=== PATIENT | female | born 1980 | race Caucasian/White ===

== ENCOUNTER 2020-04-11 19:27 | Emergency (ER) | payer MEDICAID, SELFPAY ==
[2020-04-11 19:30] VITALS: BP 136/90; PULSE 114; RESP 18; TEMP 36.3; O2SAT 97; BMI 34.9
--- NOTE | 2020-04-11 20:37 | ED.VIS.DENTA ---
History of Present Illness Chief Complaint: Dental Informant: Patient Onset: Days Context: Gradual Onset Narrative: Patient is a 39-year-old female with history of bipolar disorder presenting with dental pain. Patient states she is new to the area and [facility] She is for the past few days she is had worsening pain in her bilateral molars. She states in November she had an abscess on her left lower tooth that had to be lanced. At that time she was on antibiotics. She is supposed to follow-up with a dentist but everything got canceled secondary to COVID and now she is moved from [place] to [place]. She continues to smoke cigarettes. She is been taking Tylenol with no relief of her symptoms. She denies any difficulty swallowing or chewing. She denies any new injuries to her teeth. She is never like she has an abscess this time. No other complaints at this time. Past Medical History - Allergies and Home Meds Allergies/Adverse Reactions: Allergies risperidone Allergy (Verified 04/11/20 19:28) Anaphylaxis Primary Care Physician: Care Physician,No Primary [Primary Care Provider] - Past Medical History: - - Bipolar disorder [facility] Smoking Status: Current every day smoker Review of Systems General: Denies: Chills, Fever, Sweats Eyes: Denies: Visual changes - bilaterally, Diplopia ENT: Reports: - - Bilateral upper dental pain. Denies: Rhinorrhea, Sore throat Cardiovascular: Denies: Chest pain, Palpitations Respiratory: Denies: Dyspnea, Cough, Dyspnea on exertion Gastrointestinal: Denies: Abdominal pain, Nausea, Vomiting Musculoskeletal: Denies: Back pain, Extremity Pain Skin: Denies: Rash, Wounds Neurological: Denies: Headache, Weakness, Numbness Physical Exam Vital Signs/Narrative: Vital Signs Temp Pulse Resp BP Pulse Ox 04/11/20 19:30 97.3 F L 114 H 18 136/90 H 97 Inital Vital Signs reviewed: Yes General: Well nourished, Well developed Head: Normocephalic, Atraumatic ENT: Moist mucous membranes, No rhinorrhea, TM's clear Mouth/Throat: Normal inspection lips/gums, Normal oral mucosa, Widespread dental decay, - - Patient's back two of her molars are completely eroded down. She has been having pain at her second molar site the left. Broken tooth with obvious caries and pain to palpation of the right premolar. Sublingual mucosa is soft.. Negative for: Dental abscess, Trismus Neck: Supple, No lymphadenopathy, Nontender, No JVD Cardiovascular: Regular rate, Regular rhythm, No murmurs Respiratory: No distress, CTA bilaterally, Chest nontender Abdomen: Soft, Nontender, Nondistended, Normal bowel sounds Back: Nontender, Normal Inspection Extremities: Nontender, No edema Skin: Normal color, No rash Neurological: Alert, Oriented x3, Cranial nerves II-XII grossly intact, Normal Strength, Normal Sensation Psychological: Normal affect Diagnostic/Tx/Re-eval - Medical Decision Making Patient evaluated for dental pain. She does not have any obvious focal abscess. Not having trismus or airway compromise. Patient be started on penicillin and Motrin for pain control. She is agreeable with this plan. She is given a dental referral line as well as the on-call physician is not have a PCP in the area. She is counseled on return precautions. Patient is counseled on signs and symptoms requiring return to the emergency room. Patient verbalizes agreement and understand this plan. Patient discharged home in stable and improved condition. ED Disposition - Plan for ED Patient: Disposition: Home or Assisted Living Diagnosis: Dentalgia Instructions: ED Tooth Pain Prescriptions: Ibuprofen [Motrin] 800 mg PO TID PRN PRN #20 tab PRN Reason: Pain Score 1-10/10 Prescription Printed Penicillin V Potassium 500 mg PO 4X/DAY #40 tab Prescription Printed Referrals: Brian Esposito MD [NON-STAFF] -
[2020-04-11] MEDS: Penicillin Vk 250 MG Tablet 500 MG PO (20:43)
[2020-04-11] MEDS: Ibuprofen 600 MG Tablet PO (20:43)
[2020-04-11 20:47] VITALS: PULSE 90; RESP 16; O2SAT 99
--- NOTE | 2020-04-11 20:47 | ED.RN ---
REVIEWED D/C INSTRUCTIONS, FOLLOW UP CARE, PRESCRIPTIONS, AND S/S THAT WOULD WARRANT A RETURN TO THE ED WITH PT. PT VERBALIZED AN UNDERSTANDING AND DENIES FURTHER QUESTIONS FOR THIS RN. PT SKIN P/W/D, RESP EVEN AND UNLABORED, PT A&O X 3, NO DISTRESS NOTED. PT AMBULATED OUT OF ED, GAIT STEADY.
== END 2020-04-11 20:48 | disposition home or self-care (01) ==
PROVIDERS: Emergency Provider Emergency Medicine
DX: K08.89 Other specified disorders of teeth and supporting structures (principal); K02.9 Dental caries, unspecified; S02.5XXA Fracture of tooth (traumatic), initial encounter for closed fracture; X58.XXXA Exposure to other specified factors, initial encounter; Y93.9 Activity, unspecified; Y92.9 Unspecified place or not applicable; Y99.9 Unspecified external cause status; F31.9 Bipolar disorder, unspecified; F17.210 Nicotine dependence, cigarettes, uncomplicated; Z79.899 Other long term (current) drug therapy
CPT/HCPCS: 99283

== ENCOUNTER 2020-04-25 14:43 | Emergency (ER) | payer MEDICAID, SELFPAY ==
[2020-04-25 14:44] VITALS: BP 157/113; PULSE 100; RESP 17; TEMP 36.6; O2SAT 100; BMI 32.9
--- NOTE | 2020-04-25 15:14 | ED.DCSUM_ITS ---
- ER Visit Summary Date of Service: 04/25/20 Chief Complaint: Dental pain History of Present Illness: The patient is a 39 F with no primary care physician. She reports that she went to [facility] 6 days ago and was changed from penicillin to amoxicillin and told that she needed to have multiple teeth extracted. She states that they tried to extract them and were unable to. She reports that she now has an appointment with [facility] in [place] on May 07. However, she has had increased pain since they attempted to pull the teeth 6 days ago. Patient reports that she has pain in her right mandibular second molar that is 10 out of 10 at worst and she is pain-free currently. She describes the pain as sharp. Is worsened by eating, breathing, or smoking. Is relieved by ice. She reports that she did have jaw swelling, but this is improving with the amoxicillin. Physical Examination: Vitals: Stable. Afebrile. Mouth: Widespread dental decay. No trismus. No edema of the floor of the mouth. Pain with percussion of both mandibular second molars and both maxillary second molars. There are obvious cavities. The left mandibular second molars are eroded to the gumline. General: A&O x 3. NAD. Cardiovascular exam: Regular rate and rhythm, no murmur, rub or gallop. Respiratory exam: Clear to auscultation bilaterally. No wheezes or stridor. Abdominal exam: Soft, nontender, nondistended, normal bowel sounds. No peritoneal signs. Extremity: No clubbing, cyanosis, or edema. Emergency Department Course and Treatment: An [facility] report was obtained which shows she is had one prescription for opiates. She was given a dose of [place] p.o. Treatment Plan: Patient is given a list of local dentist. Instructed follow-up the dentist as soon as possible for further evaluation and treatment. She is instructed to continue her amoxicillin. Return to the emergency department for any worsening symptoms. Disposition: To home in improved and stable condition. Impression: 1. Dental pain. This note was generated with [employer] dictation software. It may contain incorrect words, spelling, and punctuation that were not noted in review of the chart prior to signing ED Disposition - Plan for ED Patient: Disposition: Home or Assisted Living Instructions: ED Tooth Pain Prescriptions: Hydrocodone Bitart/Apap 5-325 [[place] 5MG-325MG] 1 tab PO Q4H PRN PRN 2 Days #10 tab PRN Reason: Pain Prescription Printed Referrals: Dentist,Your [STAFF PHYSICIAN] - As soon as possible
[2020-04-25] MEDS: HYDROcodone Bitartrate/Apap 5/325 Tablet PO (15:34)
== END 2020-04-25 15:43 | disposition home or self-care (01) ==
LOC: ED 15:21
PROVIDERS: Emergency Provider Emergency Medicine
DX: K08.89 Other specified disorders of teeth and supporting structures (principal); K02.9 Dental caries, unspecified; R05 Cough; Z72.0 Tobacco use; Z79.899 Other long term (current) drug therapy
CPT/HCPCS: 99282

== ENCOUNTER 2021-04-19 14:46 | Emergency (ER) | payer MEDICAID, SELFPAY ==
[2021-04-19 14:46] VITALS: BP 151/113; PULSE 76; RESP 18; TEMP 36.3; O2SAT 98; BMI 35.3
--- NOTE | 2021-04-19 14:50 | RAD_ITS ---
STUDY: X-RAY CHEST REASON FOR EXAM: Female, 40 years old. Chest pain TECHNIQUE: Single AP portable view of the chest. COMPARISON: None. FINDINGS: The lungs are clear and expanded. There is no demonstrated pleural abnormality. Normal size heart. Normal mediastinum and benji. Normal visualized pulmonary arteries. Normal visualized aortic arch and descending thoracic aorta. Normal visualized thoracic spine. Normal visualized ribs, clavicles, and shoulders. There is no demonstrated abnormality of the visualized soft tissue structures of the upper abdomen. RAD/Chest 1 View (Portable) IMPRESSION: Normal x-ray examination of the chest. Electronically Signed: Jose Cormier MD at 15:47 EDT , Service support ,
--- NOTE | 2021-04-19 14:50 | EKG12_ITS ---
Test Reason : CP Blood Pressure : / mmHG Vent. Rate : 078 BPM Atrial Rate : 078 BPM P-R Int : 134 ms QRS Dur : 080 ms QT Int : 384 ms P-R-T Axes : 061 040 018 degrees QTc Int : 437 ms Normal sinus rhythm Normal ECG Confirmed by ROBERT KIRBY, JEOVANY ([id number]), society editor SUE REYES ([id number]) on 04/22/2021 10:01:56 AM Referred By: Confirmed By:JEOVANY JONES MD
[2021-04-19 15:18] LABS: Absolute Lymphocyte Count 3.07 X10^3/uL (0.83-4.51); Absolute Neutrophil Count 6.5 X10^3/uL (2.0-7.7); Basophil# 0.07 X10^3/uL; Basophil% 0.6 % (0-1); Eosinophils% 2.7 % (0-5); Hematocrit 41.3 % (37-47); Hemoglobin 13.3 g/dL (12.0-15.0); Lymphocyte # 3.07 X10^3/ul (0.83-4.51); Mean Corp Hgb Conc 32.2 g/dL (32-36); Mean Corpuscular Hgb 28.2 pg (27.0-32.0); Mean Corpuscular Volume 87.7 fL (81-99); Mean Platelet Vol. 9.6 fl (6.2-12.0); Monocyte# 0.98 X10^3/uL; Monocyte% 8.9 % (0-10); NRBC Flagged by Analyzer 0 % (0-5); Neutrophil # 6.48 X10^3/uL (2.7-7.7); Neutrophil % 59.3 % (47-70); Platelet Count 380 K/mm3 (150-450); RBC Distribution Width CV 14.8 % (11.6-14.6); RBC Distribution Width SD 47.8 fl (35.1-43.9); Red Blood Count 4.71 M/mm3 (4.2-5.4)
[2021-04-19 15:41] LABS: Anion Gap 4 (5-15); BUN 13 mg/dL (7-18); BUN/Creat Ratio 17.4 RATIO (10-20); Calcium,Total 9.2 mg/dL (8.5-10.1); Chloride 107 mmol/L (98-107); Creatinine, Serum 0.75 mg/dL (0.55-1.02); EST Glomerular Filtration Rate 91 mL/min (>60); Est Glom Filt Rate - Afr Amer 110 mL/min (>60); Estimated Creatinine Clearance 78.07 ml/min; Glucose 93 mg/dL (74-106); Potassium 3.8 mmol/L (3.5-5.1); Sodium Level 139 mmol/L (136-145); Troponin-I HS 3.8 pg/mL (3.0-53.7)
[2021-04-19 16:07] VITALS: PULSE 74; RESP 14; O2SAT 97
--- NOTE | 2021-04-19 16:08 | NURSING ---
NO OLD EKGS
--- NOTE | 2021-04-19 17:15 | EDS_ITS ---
HPI History of Present Illness Chief Complaint: Chest Pain Informant: patient and parent Narrative Narrative: Patient presents with right upper chest pain and pain on top of her right shoulder. Is been going on 5 days. She does not recall any injury. She states this is the same area of pain where she had shingles twice. However the pain is more of an aching and less of a burning. She does not see any rash. There is no trauma. There is no trouble breathing. She has a chronic smoker's cough but it has not changed. She has no travel, surgery, personal or family history of DVT or PE. No hormonal therapy. She does have family history of heart disease at a young age. Her mother had a stent at about 50 years old. Her symptoms are nonexertional. Her symptoms are worse with moving or twisting. Staying still makes it better and moving makes it worse. She has no trouble eating or drinking. No right upper quadrant tenderness. Patient does have a suspected history of high blood pressure. She has not been treated other than when she was . She does smoke. PFSH PFSH Medical History Shingles Smoker Home Medications bupropion HCl 300 mg PO DAILY 04/11/20 [History Last Taken Unknown] ibuprofen 800 mg PO TID PRN PRN #20 tab 04/11/20 [Rx Last Taken Unknown] penicillin V potassium 500 mg PO 4X/DAY #40 tab 04/11/20 [Rx Last Taken Unknown] quetiapine 50 mg PO BREAKFAST 04/11/20 [History Last Taken Unknown] quetiapine 150 mg PO QHS 04/11/20 [History Last Taken Unknown] naproxen [Naprosyn] 500 mg PO BID PRN #20 tab 04/19/21 [Rx Last Taken Unknown] Allergy/AdvReac Type Severity Reaction Status Date / Time risperidone Allergy Anaphylaxis Verified 04/19/21 14:49 Family History (Updated 04/19/21 @ 16:09 by Rock Goel) Other CAD (coronary artery disease) Surgical History H/O tubal ligation Social History Smoking Status: Current every day smoker tobacco type: cigarettes ROS ROS ED Constitutional Constitutional ED: Denies fever(s), subjective or sweats Eyes Eyes: Denies change in vision ENT ENT ED: Denies ear pain or rhinorrhea Cardiovascular Cardiovascular: Reports chest pain; Denies palpitations or racing heartbeat Respiratory/Chest Respiratory/Chest: Reports cough; Denies dyspnea or sputum Gastrointestinal Gastrointestinal: Denies abdominal pain, diarrhea, nausea or vomiting Genitourinary Genitourinary ED: Denies hematuria Musculoskeletal Musculoskeletal: Reports neck pain; Denies back pain Integumentary Denies rash Neurologic Neurologic: Denies headache(s), paresthesias or weakness Endocrine Endocrinology: Denies polydipsia or polyuria Hematologic/Lymphatic Hematologic/Lymphatic: Denies easy bruising Allergic/Immunologic Allergic/Immunologic ED: Denies urticaria EXAM Physical Exam Const Vital Signs: 04/19/21 14:46 04/19/21 16:07 Temperature 97.3 F L Temperature Source Temporal Pulse Rate 76 74 Respiratory Rate 18 14 Blood Pressure 151/113 H Blood Pressure Mean 125 Pulse Ox 98 97 Oxygen Delivery Method Room Air Room Air Positive well nourished and well developed General Appearance ED: well developed and NAD HEENT normocephalic and atraumatic Eyes PERRL General Eye ED: Negative for pale conjunctiva Neck supple Neck Narrative: Patient does have tenderness on the trapezius near the base of the neck right. This does reproduce a lot of her symptoms. But there is no sign of acute rash or erythema. No subcutaneous air. No crepitance. Chest Wall inspection of chest normal; Negative for palpation of chest normal Chest Narrative: Patient does have some tenderness to the upper chest wall just below the clavicle and above it. But there are no skin changes. Chest: tenderness Resp normal respiratory effort and clear to auscultation bilaterally Resp Narrative: No pleuritic pain. Effort and Inspection: respiratory distress Auscultation: Negative for rales, rhonchi or wheezes Cardio regular rate and regular rhythm GI normal to inspection, nondistended, normoactive bowel sounds, soft to palpation, non-tender and non-distended Back/Spine no CVA tenderness General Back: CVA tenderness Extremity normal to inspection Neuro Sensorium / Orientation: awake and alert Psych mental status grossly normal Skin no rashes or lesions noted Heart Score History: Slightly/Non-Suspicious ECG: Nonspecific Repolarization Age: </= 45 years Risk Factors: >/= 3 Risk Factors or History of CAD Troponin: </= Normal Limit Score: 3 MDM MDM MDM Narrative Medical decision making narrative: Patient's heart score is 3. She has had continual symptoms for 5 days. These are reproducible with palpation and motion. Her troponin is negative after this. I think she is safe for discharge from that point of view. She is also PERC negative. She will be placed on nonsteroidals. I will refer her to a private physician. We also discussed follow-up to have recheck of her blood pressure as it may need therapy. Lab Data Attestation: I reviewed the patient's lab results. Labs: Laboratory Results - last 24 hr 04/19/21 04/19/21 15:12 15:12 WBC 11.0 RBC 4.71 Hgb 13.3 Hct 41.3 MCV 87.7 MCH 28.2 MCHC 32.2 RDW Std Deviation 47.8 H RDW Coeff of Elizabeth 14.8 H Plt Count 380 MPV 9.6 Immature Gran % (Auto) 0.500 Neut % (Auto) 59.3 Lymph % (Auto) 28.0 [place] % (Auto) 8.9 Eos % (Auto) 2.7 Baso % (Auto) 0.6 Absolute Neuts (auto) 6.5 Absolute Lymphs (auto) 3.07 Nucleated RBC % 0 Sodium 139 Potassium 3.8 Chloride 107 Carbon Dioxide 28.0 Anion Gap 4 L BUN 13 Creatinine 0.75 Estim Creat Clear Calc 78.07 Est GFR (MDRD) Af Amer 110 Est GFR (MDRD) Non-Af 91 BUN/Creatinine Ratio 17.4 Glucose 93 Calcium 9.2 Troponin I High Sens 3.8 Radiography Diagnostic Testing: Radiology Impression Chest X-Ray 04/19/21 14:50 IMPRESSION: Normal x-ray examination of the chest. Electronically Signed: Jose Cormier MD at 15:47 EDT , Service support , EKG Initial EKG: Comments: EKG done for chest/neck pain read by me shows normal sinus rhythm at 78. There is a fair amount of baseline variation. Nonspecific ST change inferiorly and a little bit diffusely. I do not find an old EKG for comparison. No ventricular ectopy. [place] interval, QRS duration and QTc are normal. Discharge Plan Triage Chief Complaint: Chest Pain ED Provider: Ta Turner Dx/Rx/DC Orders Clinical Impression: Chest pain, Neck pain Instructions: ED Chest Pain, Uncertain Cause, ED Neck Pain Prescriptions: New naproxen [Naprosyn] 500 mg tablet 500 mg PO BID PRN (Reason: pain) Qty: 20 RF: 0 No Action bupropion HCl 300 MG tablet extended release 24 hr 300 mg PO DAILY RF: 0 quetiapine 50 MG tablet 50 mg PO BREAKFAST RF: 0 quetiapine 150 MG tablet extended release 24 hr 150 mg PO QHS RF: 0 ibuprofen 800 MG tablet 800 mg PO TID PRN PRN (Reason: Pain Score 1-10/10) Qty: 20 RF: 0 penicillin V potassium 500 MG tablet 500 mg PO 4X/DAY Qty: 40 RF: 0 Primary Care Provider: Care Physician,No Primary Referrals: Naomy Mitchell DO [STAFF PHYSICIAN] - As soon as possible Care Physician,No Primary [Primary Care Provider] - Disposition Disposition: Home, Self Care
== END 2021-04-19 17:30 | disposition home or self-care (01) ==
PROVIDERS: Emergency Provider Emergency Medicine
DX: R07.9 Chest pain, unspecified (principal); M54.2 Cervicalgia; M25.511 Pain in right shoulder; J41.0 Simple chronic bronchitis; F17.210 Nicotine dependence, cigarettes, uncomplicated; Z79.1 Long term (current) use of non-steroidal anti-inflammatories (NSAID); Z79.899 Other long term (current) drug therapy; Z82.49 Family history of ischemic heart disease and other diseases of the circulatory system
CPT/HCPCS: 71045; 80048; 84484; 85025; 93005; 99284

== ENCOUNTER 2022-02-11 18:07 | Observation (INO) | payer MEDICAID, SELFPAY ==
[2022-02-11 18:09] VITALS: BP 76/47; PULSE 99; RESP 16; TEMP 36.2; O2SAT 95; BMI 32.5
--- NOTE | 2022-02-11 18:42 | NURSING ---
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
--- NOTE | 2022-02-11 18:47 | EKG12_ITS ---
Test Reason : REPEAT EKG Blood Pressure : / mmHG Vent. Rate : 082 BPM Atrial Rate : 082 BPM P-R Int : 136 ms QRS Dur : 086 ms QT Int : 398 ms P-R-T Axes : 050 039 028 degrees QTc Int : 464 ms Normal sinus rhythm Normal ECG Confirmed by APRIL KIRBY, LORA ([id number]), video editor SUE REYES ([id number]) on 02/14/2022 10:05:55 A M Referred By: JOANNE Confirmed By:ALIX CHEN MD
[2022-02-11 18:54] VITALS: BP 112/79; PULSE 92
[2022-02-11] MEDS: Nitroglycerin Oint 1 INCH PACKET TRANSDERM. (18:54)
[2022-02-11] MEDS: Aspirin 81 MG TAB.CHEW 324 MG PO (18:54)
--- NOTE | 2022-02-11 18:54 | EDS_ITS ---
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 She felt she was going to pass out. They were severe, and she was diaphoretic. She called EMS, they did an EKG and transmitted it to us, and put her on oxygen and transported her here. Now she states she feels a lot better except for a little nausea but the dyspnea and chest discomfort and lightheadedness are resolved. She does not see a doctor. She has smoked for about 20 years, 1 pack/day. She denies using other drugs. Prior Similar Symptoms: No PFSH PFSH Medical History History of substance abuse Shingles Smoker Home Medications NK 02/11/22 [History Last Taken Unknown] Allergy/AdvReac Type Severity Reaction Status Date / Time risperidone Allergy Anaphylaxis Verified 04/19/21 14:49 Family History (Updated 04/19/21 @ 16:09 by Rock Goel) Other CAD (coronary artery disease) Surgical History H/O tubal ligation Social History Smoking Status: Current every day smoker tobacco type: cigarettes ROS ROS ED Constitutional Constitutional ED: Reports malaise; Denies chills or fever(s) Eyes Eyes: Denies change in vision or diplopia ENT ENT ED: Denies rhinorrhea or sore throat Cardiovascular Cardiovascular: Reports chest pain, dyspnea and lightheadedness; Denies palpitations Respiratory/Chest Respiratory/Chest: Reports dyspnea; Denies cough Gastrointestinal Gastrointestinal: Reports nausea; Denies abdominal pain, diarrhea or vomiting Genitourinary Genitourinary ED: Denies dysuria or hematuria Musculoskeletal Musculoskeletal: Denies back pain or neck pain Integumentary Denies abscess or rash Neurologic Neurologic: Denies headache(s), paresthesias or weakness Psychiatric Psychiatric: Denies anxiety or suicidal thoughts EXAM Physical Exam Const Vital Signs: 02/11/22 18:09 02/11/22 18:41 02/11/22 18:54 Temperature 97.1 F L Temperature Source Temporal Pulse Rate 99 92 Respiratory Rate 16 Respiratory Effort Short of Breath Respiratory Depth Normal Respiratory Pattern Normal Blood Pressure 76/47 L 112/79 Blood Pressure Mean 56 Pulse Ox 95 Oxygen Delivery Method Nasal Cannula Nasal Cannula Oxygen Flow Rate (L/min) 2 02/11/22 19:04 Temperature Temperature Source Pulse Rate Respiratory Rate Respiratory Effort Respiratory Depth Respiratory Pattern Blood Pressure Blood Pressure Mean Pulse Ox Oxygen Delivery Method Nasal Cannula Oxygen Flow Rate (L/min) 2 Positive well nourished and well developed General Appearance ED: well developed and NAD HEENT Reports moist mucous membranes normocephalic and atraumatic Eyes PERRL and EOMs intact bilaterally Neck full ROM and supple Chest Wall inspection of chest normal and palpation of chest normal Chest: Negative for tenderness Resp normal respiratory effort and clear to auscultation bilaterally Cardio regular rate, regular rhythm and no murmurs GI non-tender and non-distended Auscultation: normoactive bowel sounds Palpation: soft Back/Spine no CVA tenderness General Back: other FROM Extremity normal to inspection General Extremety ED: Negative for edema, pulses abnormal or tenderness General Extremity: Negative for edema or pulses abnormal Neuro oriented x3, CN's II-XII intact bilaterally and no sensory deficits noted Sensorium / Orientation: awake and alert Motor Exam: strength 5/5 throughout Skin no rashes or lesions noted and no wounds Heart Score History: Highly Suspicious ECG: Significant ST-Depression Age: </= 45 years Risk Factors: 1 or 2 Risk Factors Score: 5 MDM MDM MDM Narrative Medical decision making narrative: EMS EKG was presented to us without context. It was concerning showing ST elevation in aVR only, no ST depressions in V1 or V2, but ST depressions present in 2, 3, aVF as well as V3-6. When the patient arrived here with a new EKG, she is asymptomatic and the new EKG is almost back to normal showing almost complete resolution of the above abnormalities. I discussed immediately with Dr. Doyle on for STEMI, he advises giving her aspirin, agrees with nitroglycerin topically unless she drops her blood pressure, IV fluids, and getting cardiac work-up and admitting her. She remained symptom-free with observation. Her initial troponin is negative. Repeat EKG shows resolution of all of the prior changes, but due to the concerning history and EKG changes, plan is for admission. Cardiology recommended heparin. Lab Data Attestation: I reviewed the patient's lab results. Labs: Laboratory Results - last 24 hr 02/11/22 02/11/22 18:50 18:50 WBC 12.8 H RBC 4.35 Hgb 12.3 Hct 38.4 MCV 88.3 MCH 28.3 MCHC 32.0 RDW Std Deviation 48.0 H RDW Coeff of Elizabeth 14.7 H Plt Count 448 MPV 9.7 Immature Gran % (Auto) 0.500 Neut % (Auto) 54.2 Lymph % (Auto) 40.8 [place] % (Auto) 2.6 Eos % (Auto) 1.7 Baso % (Auto) 0.2 Absolute Neuts (auto) 6.9 Absolute Lymphs (auto) 5.22 H Nucleated RBC % 0 Differential Comment SCANNED Sodium 144 Potassium 3.2 L Chloride 110 H Carbon Dioxide 27.0 Anion Gap 7 BUN 23 H Creatinine 1.13 H Estim Creat Clear Calc 48.94 Est GFR (MDRD) Af Amer 68 Est GFR (MDRD) Non-Af 56 L BUN/Creatinine Ratio 20.4 H Glucose 165 H Calcium 9.3 Troponin I High Sens < 3 L Radiography Diagnostic Testing: Clinical Impression(s) from Imaging Studies Chest X-Ray 02/11/22 19:02 IMPRESSION: Normal x-ray examination of the chest. Electronically Signed: Toni Pickett MD at 19:22 EDT , Rhythm Strip Rhythm Strip: Sinus Rhythm Rate: 95 Ectopy: None EKG Initial EKG: Attestation: I personally reviewed and interpreted this EKG as follows: Interpretation: Sinus Rhythm and S-T Depression (Less than 1 mm inferiorly and high lateral precordial leads) Prior EKG tracings: available for review (EMS EKG) Prior: Changed (See above) Follow-up EKG: Attestation: I personally reviewed and interpreted this EKG as follows: Interpretation: Sinus Rhythm and No Acute Injury Pattern Comments: Normal EKG. ST depressions and elevations resolved. Discharge Plan Dx/Rx/DC Orders Clinical Impression: Unstable angina Disposition Disposition: Acute Care Hospital [facility]
[2022-02-11] MEDS: Ondansetron 4 MG/2 ML Vial IV (18:57)
[2022-02-11] MEDS: 0.9% Normal Saline 1,000 ML 1000 ML IV (18:57)
[2022-02-11 18:59] LABS: Absolute Lymphocyte Count 5.22 X10^3/uL (0.83-4.51); Absolute Neutrophil Count 6.9 X10^3/uL (2.0-7.7); Basophil# 0.02 X10^3/uL; Basophil% 0.2 % (0-1); Eosinophil# 0.22 X10^3/uL; Eosinophils% 1.7 % (0-5); Hematocrit 38.4 % (37-47); Hemoglobin 12.3 g/dL (12.0-15.0); Lymphocyte # 5.22 X10^3/ul (0.83-4.51); Lymphocyte % 40.8 % (19-41); Mean Corpuscular Hgb 28.3 pg (27.0-32.0); Mean Corpuscular Volume 88.3 fL (81-99); Mean Platelet Vol. 9.7 fl (6.2-12.0); Monocyte# 0.33 X10^3/uL; Monocyte% 2.6 % (0-10); NRBC Flagged by Analyzer 0 % (0-5); Neutrophil # 6.94 X10^3/uL (2.7-7.7); Neutrophil % 54.2 % (47-70); POSITIVE DIFFERENTIAL YES; Platelet Count 448 K/mm3 (150-450); RBC Distribution Width CV 14.7 % (11.6-14.6); Red Blood Count 4.35 M/mm3 (4.2-5.4); White Blood Count 12.8 K/mm3 (4.4-11.0)
[2022-02-11 19:01] LABS: Differential Indicated SCAN CRITERIA MET
--- NOTE | 2022-02-11 19:02 | RAD_ITS ---
STUDY: X-RAY CHEST REASON FOR EXAM: Female, 41 years old. chest pain TECHNIQUE: Single AP portable view of the chest. COMPARISON: 04/19/2021 FINDINGS: The lungs are clear and expanded. There is no demonstrated pleural abnormality. Normal size heart. Normal mediastinum and benji. Normal visualized pulmonary arteries. Normal visualized aortic arch and descending thoracic aorta. Normal visualized thoracic spine. Normal visualized ribs, clavicles, and shoulders. There is no demonstrated abnormality of the visualized soft tissue structures of the upper abdomen. RAD/Chest 1 View (Portable) IMPRESSION: Normal x-ray examination of the chest. Electronically Signed: Toni Pickett MD at 19:22 EDT ,
[2022-02-11 19:16] LABS: Anion Gap 7 (5-15); BUN 23 mg/dL (7-18); BUN/Creat Ratio 20.4 RATIO (10-20); Calcium,Total 9.3 mg/dL (8.5-10.1); Chloride 110 mmol/L (98-107); Creatinine, Serum 1.13 mg/dL (0.55-1.02); EST Glomerular Filtration Rate 56 mL/min (>60); Est Glom Filt Rate - Afr Amer 68 mL/min (>60); Estimated Creatinine Clearance 48.94 ml/min; Glucose 165 mg/dL (74-106); Potassium 3.2 mmol/L (3.5-5.1); Sodium Level 144 mmol/L (136-145); Troponin-I HS (w/2H Reflex) < 3 pg/mL (3.0-54.0)
[2022-02-11 19:26] LABS: Differential Comment SCANNED
[2022-02-11 20:21] VITALS: BP 124/90; PULSE 90; RESP 18; TEMP 36.7; O2SAT 97
[2022-02-11] MEDS: Heparin Injection (Vial) 5,000 UNIT/ML VIAL 5000 UNIT IV (20:26)
[2022-02-11] MEDS: HEPARIN/D5w 25,000 UNITS 25,000 UNITS/250 ML IV.SOLN. 11 UNITS CONT INF (20:26)
[2022-02-11] MEDS: Acetaminophen 325 MG Tablet 650 MG PO (20:27)
[2022-02-11 20:51] LABS: International Normalized Ratio 1.1; Partial Thromboplast Time 27.6 Seconds (24.1-36.2); Prothrombin Time (Protime)PT. 13.6 SECONDS (11.7-14.9)
[2022-02-11 20:54] VITALS: PULSE 93
[2022-02-11 20:56] LABS: Reflex Troponin-HS? (from REC) Y
[2022-02-11 21:13] VITALS: BMI 29.2
[2022-02-11 21:25] VITALS: BP 121/80; PULSE 92; RESP 18; TEMP 36; O2SAT 97
[2022-02-11 21:53] LABS: Troponin-I HS 35 pg/mL (3.0-54.0)
--- NOTE | 2022-02-11 22:11 | HP.PCM.HOS_ITS ---
HPI - General General Date of Admission: 02/11/22 Date of Service: 02/11/22 Chief Complaint: Chest pain, shortness of breath HPI Narrative JAYNE JEFFERSON, is a 41 F who presents to the emergency room at [facility] after being brought in by squad due to complaints of shortness of breath, chest pain, and presyncope which occurred at home when she was getting ready to go to work tonight. Patient has a history of bipolar disorder but takes no medication because she stated that when she was on medication before she became lethargic and did not want to get out of bed. Patient has no history of coronary artery disease, she does not see a physician on a routine basis, family history is positive for early heart disease in her mother who was 50 at the time she had her heart disease. Patient smokes about a pack of cigarettes a day. Patient denies any history of any similar episode, she states that the chest pain-which she describes as pressure-stopped after oxygen was applied and she was brought to the emergency room. The episode she states lasted about 20 minutes. She did have radiation of the discomfort into her neck area. Patient felt nauseated but did not throw up. Work-up in the emergency room included an EKG which showed T wave inversions in aVR along with some ST elevations in aVR, otherwise there was no signs of ST elevation or depression in her other leads. Patient's cardiac enzymes are unrem arkable, CBC showed an elevated white blood cell count of 12.8, chemistry profile showed a low potassium at 3.2, creatinine was elevated at 1.13, BUN was elevated at 23, and patient's chest x-ray was unremarkable. Patient was initially hypotensive in the emergency room, she was given fluids with co rrection of her blood pressure. Cardiology was contacted by the emergency room physician and the patient was placed on a heparin drip, she was also given 325 mg of aspirin in the emergency room. At the time of my examination, patient does not complain of any chest discomfort or shortness of breath. [facility] Medical History History of substance abuse Shingles Smoker Home Medications NK 02/11/22 [History Last Taken Unknown] Allergy/AdvReac Type Severity Reaction Status Date / Time risperidone Allergy Anaphylaxis Verified 04/19/21 14:49 Family History Other CAD (coronary artery disease) Surgical History H/O tubal ligation Social History Smoking Status: Current every day smoker tobacco type: cigarettes ROS Constitutional Constitutional: Denies anorexia, change in weight, chills, fatigue, fever(s), night sweats or weakness Eyes Eyes: Denies blurry vision, change in vision, discharge from eye(s) or eye pain ENT HEENT: Denies abnormal hearing, dysphagia or ear pain Cardiovascular Cardiovascular: Reports chest pain and other Details: Patient stated that she felt she was going to pass out when she had her chest discomfort ; Denies claudication, dyspnea on exertion, edema or palpitations Respiratory/Chest Respiratory/Chest: Reports dyspnea; Denies cough, excessive phlegm production, hemoptysis, productive cough, shortness of breath at rest or shortness of breath with exertion Gastrointestinal Gastrointestinal: Denies abdominal pain, constipation, diarrhea, hematemesis, hematochezia, melena, nausea or vomiting Genitourinary Genitourinary: Denies dysuria, hematuria, urinary frequency, urinary hesitancy, urinary incontinence or urinary urgency Musculoskeletal Musculoskeletal: Denies back pain, joint pain, joint stiffness, joint swelling, myalgias or neck pain Neurologic Neurologic: Denies abnormal gait, abnormal speech, dizziness, focal weakness, headache(s), loss of vision, numbness, other visual disturbances, paresthesias, syncope or tingling Psychiatric Psychiatric: Denies anxiety, cognitive impairment, depression, irritability, mood swings or suicidal ideation Endocrine Endocrinology: Denies change in body appearance, cold intolerance, excessive sweating, heat intolerance, polydipsia or polyuria Hematologic/Lymphatic Hematologic/Lymphatic: Denies none, anemia, easy bleeding, easy bruising or lymphadenopathy Allergic/Immunologic Allergic/Immunologic: Denies rhinitis, urticaria, eczemia or asthma Vital Signs Vital Signs Vital Signs: 02/11/22 18:09 02/11/22 18:41 02/11/22 18:54 Temperature 97.1 F L Temperature Source Temporal Pulse Rate 99 92 Respiratory Rate 16 Respiratory Effort Short of Breath Respiratory Depth Normal Respiratory Pattern Normal Blood Pressure 76/47 L 112/79 Blood Pressure Mean 56 Pulse Ox 95 Oxygen Delivery Method Nasal Cannula Nasal Cannula Oxygen Flow Rate (L/min) 2 02/11/22 19:04 02/11/22 20:21 02/11/22 20:54 Temperature 98.0 F Temperature Source Temporal Pulse Rate 90 93 Respiratory Rate 18 Respiratory Effort Respiratory Depth Respiratory Pattern Blood Pressure 124/90 H Blood Pressure Mean 101 Pulse Ox 97 Oxygen Delivery Method Nasal Cannula Room Air Oxygen Flow Rate (L/min) 2 02/11/22 21:29 Temperature Temperature Source Pulse Rate Respiratory Rate Respiratory Effort Normal Non-Labored Respiratory Depth Normal Respiratory Pattern Normal Blood Pressure Blood Pressure Mean Pulse Ox Oxygen Delivery Method Room Air Oxygen Flow Rate (L/min) Weight Weight: 70.307 kg Body Mass Index (BMI) 29.2 Physical Exam Const alert, oriented x3, no apparent distress and healthy appearing General Appearance: cooperative, well kempt and well developed Orientation / Consciousness: awake, oriented to person, oriented to place and oriented to time HEENT normocephalic, head/scalp atraumatic, hearing grossly normal bilaterally and moist oral mucous membranes Eyes PERRL, EOMs intact bilaterally and conjunctivae normal Neck nuchal rigidity, supple, no JVD, thyroid normal and no carotid bruits General: trachea midline Resp normal respiratory effort, no retractions, no use of accessory muscles and clear to auscultation bilaterally Auscultation: Negative for rales, rhonchi or wheezes Cardio regular rate, regular rhythm, S1 normal heart sound, S2 normal heart sound, no rub and no gallops Cardio Narrative: There is a 2/6 systolic murmur noted at the apex and left sternal border GI normal to inspection, nondistended, normoactive bowel sounds, soft to palpation, non-tender and non-distended Extremity no clubbing, cyanosis or edema Skin no rashes or lesions noted General Skin Exam: no breakdown Neuro oriented x3, CN's II-XII intact bilaterally, no focal motor deficits and no sensory deficits noted Sensorium / Orientation: awake and alert Speech: speech normal Psych affect normal Results Lab / Micro Data Result Diagrams: 02/11/22 18:50 02/11/22 18:50 Labs: Laboratory Results - last 24 hr 02/11/22 18:50: WBC 12.8 H, RBC 4.35, Hgb 12.3, Hct 38.4, MCV 88.3, MCH 28.3, MCHC 32.0, RDW Std Deviation 48.0 H, RDW Coeff of Elizabeth 14.7 H, Plt Count 448, MPV 9.7, Immature Gran % (Auto) 0.500, Neut % (Auto) 54.2, Lymph % (Auto) 40.8, [place] % (Auto) 2.6, Eos % (Auto) 1.7, Baso % (Auto) 0.2, Absolute Neuts (auto) 6.9, Absolute Lymphs (auto) 5.22 H, Nucleated RBC % 0, Differential Comment SCANNED 02/11/22 18:50: Sodium 144, Potassium 3.2 L, Chloride 110 H, Carbon Dioxide 2 7.0, Anion Gap 7, BUN 23 H, Creatinine 1.13 H, Estim Creat Clear Calc 48.94, Est GFR (MDRD) Af Amer 68, Est GFR (MDRD) Non-Af 56 L, BUN/Creatinine Ratio 20.4 H, Glucose 165 H, Calcium 9.3, Troponin I High Sens < 3 L 02/11/22 20:15: PT 13.6, INR 1.1, APTT 27.6 02/11/22 20:15: APTT Cancelled 02/11/22 21:30: Troponin I High Sens 35 Rhythm Strip Rhythm Strip: Sinus Rhythm Rate: 95 Ectopy: None Radiology Impression Chest X-Ray 02/11/22 19:02 IMPRESSION: Normal x-ray examination of the chest. Electronically Signed: Toni Pickett MD at 19:22 EDT , Assessment & Plan Assessment/Plan (1) Chest pain: PLAN: 1. Chest pain described as pressure like in nature-suspicious for angina-patient will be placed in observation status on PCU, she will remain on a heparin drip, cardiac enzymes will be cycled, she will be seen in consultation by cardiology and probably undergo a cardiac catheterization. I discussed this with the patient and she was okay with proceeding with a catheterization if it is necessary. #2 bipolar disorder-she is not being treated with anything presently, I urged her to follow-up with a PCP as an outpatient, she states she has been on Depakote before but it was discontinued for some unknown reason. #3 hypokalemia-patient will be given oral potassium, BMP will be repeated in the morning #4 chronic migraines-patient states that she takes Excedrin for her migraines, she is not on any medication at this time otherwise. Charges/Coding Visit Charges OBSV E&M: 49365 Initial observation care L3
[2022-02-12] VITALS (11 sets, daily range): BP systolic 125–164; BP diastolic 77–108; PULSE 79–94; RESP 16–20; TEMP 36.1–36.4; O2SAT 95–100
[2022-02-12] MEDS: Potassium Chloride Oral Tablet 20 MEQ PO
[2022-02-12] MEDS: KCL 20MEQ in 0.9% NS 20 MEQ/1,000 ML IV.SOLN. 100 MEQ IV (00:05)
[2022-02-12 01:22] LABS: Troponin-I HS 68 pg/mL (3.0-54.0)
[2022-02-12] MEDS: Acetaminophen 325 MG Tablet 650 MG PO ×2 (01:42→11:57)
[2022-02-12 03:13] LABS: Anion Gap 6 (5-15); BUN 22 mg/dL (7-18); BUN/Creat Ratio 32.3 RATIO (10-20); Calcium,Total 8.2 mg/dL (8.5-10.1); Chloride 112 mmol/L (98-107); Cholesterol 145 mg/dL (200); Creatinine, Serum 0.68 mg/dL (0.55-1.02); EST Glomerular Filtration Rate 100 mL/min (>60); Est Glom Filt Rate - Afr Amer 121 mL/min (>60); Estimated Creatinine Clearance 81.33 ml/min; Glucose 115 mg/dL (74-106); High Density Lipoprotein 38 mg/dL; Potassium 3.7 mmol/L (3.5-5.1); Sodium Level 143 mmol/L (136-145); Triglycerides 132 mg/dL; Troponin-I HS 68 pg/mL (3.0-54.0); Very Low Density Lipoprotein 26 mg/dL (5-40)
--- NOTE | 2022-02-12 04:54 | EKG12_ITS ---
Test Reason : NSTEMI Blood Pressure : / mmHG Vent. Rate : 075 BPM Atrial Rate : 075 BPM P-R Int : 134 ms QRS Dur : 084 ms QT Int : 414 ms P-R-T Axes : 057 056 036 degrees QTc Int : 462 ms Sinus rhythm with Premature atrial complexes Otherwise normal ECG When compared with ECG of 19-APR-2021 14:51, Premature atrial complexes are now Present Confirmed by MARJAN KIRBY, LALITHA ([id number]), photo editor SUE REYES ([id number]) on 02/14/2022 12:56:59 PM Referred By: MT Confirmed By:LALITHA PHILLIP MD
[2022-02-12] MEDS: Aspirin E.C. 81 MG Tablet PO (05:40)
--- NOTE | 2022-02-12 05:55 | ECHOD_ITS ---
Reason For Study: Murmur Procedure This was a 2D Doppler, Color Flow transthoracic echocardiogram. Exam performed portable in patient room. Left Ventricle The estimated ejection fraction is 65 %. No evidence for diastolic dysfunction. No regional wall motion abnormalities noted. Right Ventricle Normal RV size. Normal systolic function. Atria Normal left atrium. Normal right atrium. No doppler evidence for ASD. Mitral Valve There is no mitral valve stenosis. Mild (1+) mitral valve insufficiency. Tricuspid Valve There is no tricuspid stenosis. Trivial tricuspid valve insufficiency. Pulmonary artery systolic pressure is 35 mmHg. Aortic Valve Trisinus/trileaflet aortic valve. There is no aortic stenosis. Trivial aortic valve insufficiency. Pulmonic Valve There is no pulmonic valvular stenosis. No pulmonic valve insufficiency. Great Vessels Normal aortic root. Pericardium/Pleural No pericardial effusion. MMode/2D Measurements & Calculations LVIDd: 4.4 cm IVSd: 1.3 cm LA dimension: 3.8 cm LVIDs: 2.8 cm LVPWd: 1.5 cm RVDd: 3.0 cm FS: 36.5 % LAV(MOD-bp): 55.6 ml LA A4 area: 18.1 cm2 RA A4 area: 13.7 cm2 LAV(MOD-bp) Indexed: 34.8 ml/m2 LAV(MOD-sp2): 56.8 ml LAV(MOD-sp4): 51.3 ml Time Measurements MV dec time: 0.21 sec Doppler Measurements & Calculations MV E max oliver: 95.1 cm/sec Lat Peak E' Oliver: 7.7 cm/sec Med Peak E' Oliver: 8.7 cm/sec MV A max oliver: 125.1 cm/sec E/E' lat: 12.4 E/E' med: 10.9 MV E/A: 0.76 MV V2 max: 151.2 cm/sec MV P1/2t max oliver: 132.9 cm/sec Ao V2 max: 178.9 cm/sec MV max P.1 mmHg MV P1/2t: 67.6 msec Ao max P.8 mmHg MV V2 mean: 92.9 cm/sec MV dec slope: 575.7 cm/sec2 MV mean P.0 mmHg MVA(P1/2t): 3.3 cm2 MV V2 VTI: 31.0 cm AI max oliver: 474.5 cm/sec LV V1 max: 112.9 cm/sec PA V2 max: 85.7 cm/sec AI max P.1 mmHg LV V1 max P.1 mmHg AI dec slope: 179.1 cm/sec2 AI P1/2t: 776.1 msec TR max oliver: 258.2 cm/sec TR max P.7 mmHg ECHO/Echo Complete Interpretation Summary The estimated ejection fraction is 65 %. No evidence for diastolic dysfunction. Mild (1+) mitral valve insufficiency. Trivial aortic valve insufficiency. Ordering Physician: Erlin Eng Referring Physician: No PCP Noted Performed By: Adalberto Freire RCS
--- NOTE | 2022-02-12 05:55 | EKG12_ITS ---
Test Reason : CP Blood Pressure : / mmHG Vent. Rate : 092 BPM Atrial Rate : 092 BPM P-R Int : 128 ms QRS Dur : 084 ms QT Int : 410 ms P-R-T Axes : 070 061 040 degrees QTc Int : 507 ms Normal sinus rhythm Prolonged QT Abnormal ECG Confirmed by APRIL KIRBY, LORA ([id number]), sound editor SUE REYES ([id number]) on 02/14/2022 10:06:12 A M Referred By: JOANNE Confirmed By:ALIX CHEN MD
--- NOTE | 2022-02-12 07:33 | PCM.PN.HOSP ---
Objective Data Objective Data Vital Signs: Vital Signs Temp Pulse Resp BP Pulse Ox 98.0 F 79 18 124/90 H 97 02/11/22 20:21 02/12/22 03:01 02/11/22 20:21 02/11/22 20:21 02/11/22 20:21 Oxygen Flow Rate (L/min) 2 Oxygen Delivery Method Room Air Weight: 155 lb Body Mass Index (BMI) 29.2 Intake & Output: Intake and Output for Last 24 Hours 02/10/22 02/11/22 02/12/22 23:59 23:59 23:59 Intake Total 1000 / 1000 80.48 / 80.48 Balance 1000 / 1000 80.48 / 80.48 Lab / Micro Data Result Diagrams: 02/11/22 18:50 02/12/22 02:46 Labs: Laboratory Results - last 24 hr 02/11/22 18:50: WBC 12.8 H, RBC 4.35, Hgb 12.3, Hct 38.4, MCV 88.3, MCH 28.3, MCHC 32.0, RDW Std Deviation 48.0 H, RDW Coeff of [place] 14.7 H, Plt Count 448, MPV 9.7, Immature Gran % (Auto) 0.500, Neut % (Auto) 54.2, Lymph % (Auto) 40.8, [place] % (Auto) 2.6, Eos % (Auto) 1.7, Baso % (Auto) 0.2, Absolute Neuts (auto) 6.9, Absolute Lymphs (auto) 5.22 H, Nucleated RBC % 0, Differential Comment SCANNED 02/11/22 18:50: Sodium 144, Potassium 3.2 L, Chloride 110 H, Carbon Dioxide 27.0, Anion Gap 7, BUN 23 H, Creatinine 1.13 H, Estim Creat Clear Calc 48.94, Est GFR (MDRD) Af Amer 68, Est GFR (MDRD) Non-Af 56 L, BUN/Creatinine Ratio 20.4 H, Glucose 165 H, Calcium 9.3, Troponin I High Sens < 3 L 02/11/22 20:15: PT 13.6, INR 1.1, APTT 27.6 02/11/22 20:15: APTT Cancelled 02/11/22 21:30: Troponin I High Sens 35 02/12/22 01:00: Troponin I High Sens 68 H 02/12/22 02:46: APTT 89.0 H 02/12/22 02:46: Sodium 143, Potassium 3.7, Chloride 112 H, Carbon Dioxide 25.0, Anion Gap 6, BUN 22 H, Creatinine 0.68, Estim Creat Clear Calc 81.33, Est GFR (MDRD) Af Amer 121, Est GFR (MDRD) Non-Af 100, BUN/Creatinine Ratio 32.3 H, Glucose 115 H, Calcium 8.2 L, Troponin I High Sens 68 H, Triglycerides 132, Cholesterol 145, LDL Cholesterol 81, VLDL Cholesterol 26, HDL Cholesterol 38 L Radiography Diagnostic Testing: Radiology Impression Chest X-Ray 02/11/22 19:02 IMPRESSION: Normal x-ray examination of the chest. Electronically Signed: Toni Pickett MD at 19:22 EDT , Rhythm Strip Rhythm Strip: Sinus Rhythm Rate: 95 Ectopy: None Physical Exam Narrative The patient was admitted with chest discomfort with radiation to neck along with shortness of breath, diaphoresis, dizziness and nausea. Troponins are mildly elevated. EKG shows subtle ST elevation and T wave inversion in aVR 1-lead. Assessment & Plan Assessment/Plan (1) Chest pain:
[2022-02-12 08:00] LABS: Magnesium 1.9 mg/dL (1.6-2.6)
[2022-02-12] MEDS: Potassium Chloride Oral Tablet 20 MEQ 40 MEQ PO (08:09)
[2022-02-12] MEDS: Metoprolol Tartrate 25 MG Tablet 12.5 MG PO (09:46)
[2022-02-12 10:09] LABS: Partial Thromboplast Time 58.5 Seconds (24.1-36.2)
[2022-02-12] MEDS: Amox/Clavulanate 875 MG Tablet PO (11:57)
--- NOTE | 2022-02-12 12:10 | PCM.CONS.C ---
Assessment & Plan Assessment/Plan (1) Chest pain: QUALIFIERS: Chest pain type: unspecified Qualified Code(s): R07.9 - Chest pain, unspecified (2) Unstable angina: PLAN: Patient's EKG was concerning for left main stenosis. Differential diagnosis includes hypotension from dehydration/volume depletion and global ischemia as a result of that. Patient's creatinine was also suggestive of dehydration/volume depletion. We will proceed with coronary angiography to evaluate this further. Risks and benefits discussed with the patient. HPI Consult Data Date of Consult: 02/12/22 HPI Narrative HPI Narrative: JAYNE JEFFERSON, is a 41 F who presents with CP. Initial EKG done by the paramedics showed diffuse ST depression and ST elevation in aVR. These changes resolved by the time the patient came to the emergency room. She was hypotensive and this also improved with fluids. Patient's creatinine was also elevated compared to her baseline and it has come down with hydration. Patient has remained chest pain-free. Her troponin went up minimally. Review of systems: All systems reviewed. All else is negative except that in HPI. PFSH Medical History History of substance abuse Shingles Smoker Home Medications NK 02/11/22 [History Last Taken Unknown] Allergy/AdvReac Type Severity Reaction Status Date / Time risperidone Allergy Anaphylaxis Verified 04/19/21 14:49 Family History Other CAD (coronary artery disease) Surgical History H/O tubal ligation Social History Smoking Status: Current every day smoker tobacco type: cigarettes Physical Exam Const alert and oriented x3 Orientation / Consciousness: awake HEENT normocephalic Eyes no scleral icterus Neck supple Resp normal respiratory effort Cardio regular rate Skin no rashes or lesions noted Psych mental status grossly normal Risk Stratification Risk Stratification Applicable: No Charges/Coding Visit Charges Inpatient E&M: 25438 Init Hosp L2 Objective Data Vital Signs: Vital Signs Temp Pulse Resp BP Pulse Ox 97.6 F L 84 18 131/83 H 100 02/12/22 09:20 02/12/22 09:46 02/12/22 09:20 02/12/22 09:46 02/12/22 09:20 Oxygen Flow Rate (L/min) 2 Oxygen Delivery Method Room Air Weight: 155 lb Body Mass Index (BMI) 29.2 Intake & Output: Intake and Output for Last 24 Hours 02/10/22 02/11/22 02/12/22 23:59 23:59 23:59 Intake Total 999 / 999 1126.98 / 1126.98 Balance 1000 / 999 1126.98 / 1126.98 Lab / Micro Data Result Diagrams: 02/11/22 18:50 02/12/22 02:46 Labs: Laboratory Results - last 24 hr 02/11/22 18:50: WBC 12.8 H, RBC 4.35, Hgb 12.3, Hct 38.4, MCV 88.3, MCH 28.3, MCHC 32.0, RDW Std Deviation 48.0 H, RDW Coeff of [place] 14.7 H, Plt Count 448, MPV 9.7, Immature Gran % (Auto) 0.500, Neut % (Auto) 54.2, Lymph % (Auto) 40.8, [place] % (Auto) 2.6, Eos % (Auto) 1.7, Baso % (Auto) 0.2, Absolute Neuts (auto) 6.9, Absolute Lymphs (auto) 5.22 H, Nucleated RBC % 0, Differential Comment SCANNED 02/11/22 18:50: Sodium 144, Potassium 3.2 L, Chloride 110 H, Carbon Dioxide 27.0, Anion Gap 7, BUN 23 H, Creatinine 1.13 H, Estim Creat Clear Calc 48.94, Est GFR (MDRD) Af Amer 68, Est GFR (MDRD) Non-Af 56 L, BUN/Creatinine Ratio 20.4 H, Glucose 165 H, Calcium 9.3, Troponin I High Sens < 3 L 02/11/22 20:15: PT 13.6, INR 1.1, APTT 27.6 02/11/22 20:15: APTT Cancelled 02/11/22 21:30: Troponin I High Sens 35 02/12/22 01:00: Troponin I High Sens 68 H 02/12/22 02:46: APTT 89.0 H 02/12/22 02:46: Sodium 143, Potassium 3.7, Chloride 112 H, Carbon Dioxide 25.0, Anion Gap 6, BUN 22 H, Creatinine 0.68, Estim Creat Clear Calc 81.33, Est GFR (MDRD) Af Amer 121, Est GFR (MDRD) Non-Af 100, BUN/Creatinine Ratio 32.3 H, Glucose 115 H, Calcium 8.2 L, Troponin I High Sens 68 H, Triglycerides 132, Cholesterol 145, LDL Cholesterol 81, VLDL Cholesterol 26, HDL Cholesterol 38 L 02/12/22 02:46: Magnesium 1.9 02/12/22 09:36: APTT 58.5 H Rhythm Strip Rhythm Strip: Sinus Rhythm Rate: 95 Ectopy: None Cardiology Labs/Tests 02/11/22 18:50: WBC 12.8 H, RBC 4.35, Hgb 12.3, Hct 38.4, MCV 88.3, MCH 28.3, MCHC 32.0, Plt Count 448, MPV 9.7, Immature Gran % (Auto) 0.500, Neut % (Auto) 54.2, Lymph % (Auto) 40.8, [place] % (Auto) 2.6, Eos % (Auto) 1.7, Baso % (Auto) 0.2, Absolute Neuts (auto) 6.9, Nucleated RBC % 0 02/11/22 18:50: Sodium 144, Potassium 3.2 L, Chloride 110 H, Carbon Dioxide 27.0, Anion Gap 7, BUN 23 H, Creatinine 1.13 H, Est GFR (MDRD) Af Amer 68, Est GFR (MDRD) Non-Af 56 L, BUN/Creatinine Ratio 20.4 H, Glucose 165 H, Calcium 9.3 02/11/22 20:15: PT 13.6, INR 1.1, APTT 27.6 02/11/22 20:15: APTT Cancelled 02/12/22 02:46: APTT 89.0 H 02/12/22 02:46: Sodium 143, Potassium 3.7, Chloride 112 H, Carbon Dioxide 25.0, Anion Gap 6, BUN 22 H, Creatinine 0.68, Est GFR (MDRD) Af Amer 121, Est GFR (MDRD) Non-Af 100, BUN/Creatinine Ratio 32.3 H, Glucose 115 H, Calcium 8.2 L, Triglycerides 132, Cholesterol 145, LDL Cholesterol 81, VLDL Cholesterol 26, HDL Cholesterol 38 L 02/12/22 02:46: Magnesium 1.9 02/12/22 09:36: APTT 58.5 H Rhythm: EKG: ECHO: Stress Test: Cardiac Cath: PCI: CT Surgery: Holter monitor: EPS: PPM: CXR: Chest CT Scan: Radiography Diagnostic Testing: Radiology Impression Chest X-Ray 02/11/22 19:02 IMPRESSION: Normal x-ray examination of the chest. Electronically Signed: Toni Pickett MD at 19:22 EDT ,
--- NOTE | 2022-02-12 12:13 | NURSING ---
report called to nurse Brooks in [place] [facility] on pt
[2022-02-12] MEDS: 0.9% Normal Saline 1,000 ML 70 ML IV (13:48)
--- NOTE | 2022-02-12 14:51 | PCM.DC ---
Discharge Instructions Diet Discharge Diet: 2000 mg Sodium Diet Activity Discharge Activity: Return to Normal Activity Weight Bearing Status: Weight bearing as tolerated Dressing / Incision Call your doctor if you observe: Fever of 101 or Higher, Coldness, Increased Pain, Numbness or Tingling, Change in Color, Inability to urinate, Inability to have a bowel movement, Shortness of breath, Dizziness, Fainting spells, Swelling in the ankles, Chest pain, Prolonged hiccupping, Increased palpitations (irregular heartbeat), Calf discomfort and Uncontrolled pain Follow Up Care Test Results: Test results from this visit will be discussed in further detail at your follow-up appointment, if applicable. Discharge Plan Admission Admit Date/Time: 02/11/22 22:21 Primary Reason for Your Visit: Atypical chest pain, ACS ruled out Attending Provider: Raúl Cooley Primary Care Provider: Care Physician,No Primary Consulting Providers: Michael Doyle ; Erlin Eng Instructions Additional Instructions / Restrictions: Follow-up with your dentist within 1 month. Prescription given for dental caries/infected molar tooth. Discharge Orders/Prescriptions Prescriptions: New aspirin 81 mg Tablet,Delayed Release (Dr/Ec) 81 mg PO BREAKFAST Qty: 30 RF: 2 amoxicillin-pot clavulanate 875-125 mg Tablet 875 mg PO BID Qty: 9 RF: 0 atorvastatin 40 mg tablet 40 mg PO QHS Qty: 30 RF: 2 Referrals / Follow Up: Care Physician,No Primary [Primary Care Provider] - Within 2 Weeks Disposition Disposition (needs filled in before D/C Order can be placed): Home, Self Care
--- NOTE | 2022-02-12 15:01 | DS.PCM_ITS ---
Providers Date of Admission: 02/11/22 Date of Discharge: 02/12/22 Primary Care Physician: Blanca Primary Care Phys Consultations 02/11/22 23:00 Consult: Cardiology Routine Consulting Provider: Michael Doyle Reason for Consult: chest pain EMERGENT Consult: No MD Notified: Yes Date Notified: 02/11/22 Time Notified: 22:24 Method of Notification: Verbal Method of Consult:: In-Person Reason For Visit: CHEST PAIN, PRESYNCOPE Diagnosis Discharge Diagnosis (1) Chest pain: Status: Acute Code(s): R07.9 - Chest pain, unspecified Qualifiers: Chest pain type: unspecified Qualified Code(s): R07.9 - Chest pain, unspecified Medications at Discharge Home Medications amoxicillin-pot clavulanate 875 mg PO BID #9 tab 02/12/22 aspirin 81 mg PO BREAKFAST #30 tab 02/12/22 atorvastatin 40 mg PO QHS #30 tab 02/12/22 Hospital Course Summary of Care Provided Hospital Course: This is 41-year-old female came to ER with shortness of breath, left upper chest pain, dizziness while she was getting ready to work at night on the day of admission. She has history of bipolar disorder but does not take any medication. History of smoking a pack per day since age of 16. Family history of her mother PA in her 50s. I 1. Chest discomfort, near syncope possible unstable angina: KENNETH risak at most is 2. High-sensitivity troponins are mildly elevated 68 probably related to tachycardia. Initial EKG by EMS showed diffuse ST depression and ST elevation in aVR. This has not resolved by the time she came to ED and ED EKG shows subtle ST elevation in single lead aVR. Patient was also initially hypotensive when she came to ER and was adequately fluid resuscitated. Patient was started on IV heparin drip and ACS protocol. With mild elevation in troponin, cardiac cath was done. Cardiac cath was mainly negative except mild luminal irregularities. Discussed with the emissions repair technician Dr. Redding and decided to start on baby aspirin and atorvastatin. She does not need beta-nelly/PEPE or ARB. Fasting profile shows low HDL 38 otherwise normal. #2 bipolar disorder-she is not being treated with anything presently, I advised her to follow-up with a PCP as an outpatient, she states she has been on Depakote before but it was discontinued for some unknown reason. #3 hypokalemia-replete K3.7. 1 more dose of K-Dur given. #4 chronic migraines-patient states that she takes Excedrin for her migraines, she is not on any medication at this time otherwise. Discharge medication reconciliation done. Discharge follow-up instructions completed. Discharge process discussed with the patient and all questions were answered to patient's satisfaction. Total time spent, exact 35 minutes on discharge meds reconciliation, examination, coordination of care with nurses and ancillary staff, review of imaging and blood test and discussion with the patient on follow-up instructions. Physical Exam Narrative Patient did not had any history of prior chest pain. Family history of her mother had PA in her 50s. Patient had cardiac cath described in hospital course. She complains of right lower molar tooth pain. Patient was admitted with hypotension. Blood pressure responded and now is on the higher side. Physical exam General: Alert, Oriented x3, Cooperative HEENT: Atraumatic, PERRLA, EOMI, Normocephalic Oral: Dental caries, gingivitis and tenderness over right upper and lower molar gums. Broken crown. No expressible pus. Neck: Supple, No JVD, Negative Carotid Bruits Lungs: Air entry diminished in bilateral lung bases. No crepitation/rhonchi Cardiovascular: Regular rate, Regular Rhythm, Normal S1, Normal S2, No murmurs Abdomen: Bowel Sounds Present, Soft, Non Tender, Non-Distended : No renal angle tenderness. No suprapubic tenderness. Extremities: No edema, Capillary Refill Less than 3 Seconds Skin: No rashes, No breakdown Musculoskeletal: No Tenderness to Palpation of Joints or Extremities Neurological: Cranial nerves II-XII grossly intact, DTR 2+/4 and Symmetrical, Neuro grossly intact Psych/Mental Status: Normal Affect, Appropriate. Weight / BMI Weight Weight: 155 lb Body Mass Index (BMI) 29.2 ABG / Lab / Microbiology Data Result Diagrams: 02/11/22 18:50 02/12/22 02:46 Laboratory: Laboratory Results - last 24 hr 02/11/22 18:50: WBC 12.8 H, RBC 4.35, Hgb 12.3, Hct 38.4, MCV 88.3, MCH 28.3, MCHC 32.0, RDW Std Deviation 48.0 H, RDW Coeff of Elizabeth 14.7 H, Plt Count 448, MPV 9.7, Immature Gran % (Auto) 0.500, Neut % (Auto) 54.2, Lymph % (Auto) 40.8, [place] % (Auto) 2.6, Eos % (Auto) 1.7, Baso % (Auto) 0.2, Absolute Neuts (auto) 6.9, Absolute Lymphs (auto) 5.22 H, Nucleated RBC % 0, Differential Comment SCANNED 02/11/22 18:50: Sodium 144, Potassium 3.2 L, Chloride 110 H, Carbon Dioxide 27.0, Anion Gap 7, BUN 23 H, Creatinine 1.13 H, Estim Creat Clear Calc 48.94, Est GFR (MDRD) Af Amer 68, Est GFR (MDRD) Non-Af 56 L, BUN/Creatinine Ratio 20.4 H, Glucose 165 H, Calcium 9.3, Troponin I High Sens < 3 L 02/11/22 20:15: PT 13.6, INR 1.1, APTT 27.6 02/11/22 20:15: APTT Cancelled 02/11/22 21:30: Troponin I High Sens 35 02/12/22 01:00: Troponin I High Sens 68 H 02/12/22 02:46: APTT 89.0 H 02/12/22 02:46: Sodium 143, Potassium 3.7, Chloride 112 H, Carbon Dioxide 25.0, Anion Gap 6, BUN 22 H, Creatinine 0.68, Estim Creat Clear Calc 81.33, Est GFR (MDRD) Af Amer 121, Est GFR (MDRD) Non-Af 100, BUN/Creatinine Ratio 32.3 H, Glucose 115 H, Calcium 8.2 L, Troponin I High Sens 68 H, Triglycerides 132, Cholesterol 145, LDL Cholesterol 81, VLDL Cholesterol 26, HDL Cholesterol 38 L 02/12/22 02:46: Magnesium 1.9 02/12/22 09:36: APTT 58.5 H Radiography Diagnostic Testing: Radiology Impression Chest X-Ray 02/11/22 19:02 IMPRESSION: Normal x-ray examination of the chest. Electronically Signed: Toni Pickett MD at 19:22 EDT , Echocardiogram 02/12/22 05:55 Interpretation Summary The estimated ejection fraction is 65 %. No evidence for diastolic dysfunction. Mild (1+) mitral valve insufficiency. Trivial aortic valve insufficiency. Ordering Physician: Erlin Eng Referring Physician: No PCP Noted Performed By: Adalberto Freire RCS D/C Instructions Discharge Diet: 2000 mg Sodium Diet Weight Bearing Status: Weight bearing as tolerated Call your doctor if you observe: Fever of 101 or Higher, Coldness, Increased Pain, Numbness or Tingling, Change in Color, Inability to urinate, Inability to have a bowel movement, Shortness of breath, Dizziness, Fainting spells, Swelling in the ankles, Chest pain, Prolonged hiccupping, Increased palpitations (irregular heartbeat), Calf discomfort and Uncontrolled pain Meaningful Use Info Meaningful Use Diagnoses (Choose all that apply): None applicable Discharge Plan Admission Admit Date/Time: 02/11/22 22:21 Primary Reason for Your Visit: Atypical chest pain, ACS ruled out Attending Provider: Raúl Cooley Primary Care Provider: Care Physician,No Primary Consulting Providers: Michael Doyle ; Erlin Eng Instructions Additional Instructions / Restrictions: Follow-up with your dentist within 1 month. Prescription given for dental caries/infected molar tooth. Discharge Orders/Prescriptions Prescriptions: New aspirin 81 mg Tablet,Delayed Release (Dr/Ec) 81 mg PO BREAKFAST Qty: 30 RF: 2 amoxicillin-pot clavulanate 875-125 mg Tablet 875 mg PO BID Qty: 9 RF: 0 atorvastatin 40 mg tablet 40 mg PO QHS Qty: 30 RF: 2 Referrals / Follow Up: Care Physician,No Primary [Primary Care Provider] - Within 2 Weeks Disposition Disposition (needs filled in before D/C Order can be placed): Home, Self Care Charges/Coding Visit Charges OBSV E&M: 51981 Observation care discharge
--- NOTE | 2022-02-12 16:27 | CL.D_ITS ---
Patient Name: JAYNE JEFFERSON Study Date: 02/12/2022 Performing: Kevin Doyle MD Ht: 61 inches 155 cm : 1980 Wt: 154.5 lbs 70 kg Age: 41 Gender: female BSA: 1.69 PROCEDURE(S) PERFORMED DC01-(52694)LHC/COR/LV CLINICAL PROFILE AND INDICATIONS Indications: ACS <= 24 hrs Heart Failure: None Stress/Imaging Stress/Image Study Performed: No CAD Presentations: Non-STEMI. Symptom onset Date/Time: 02/12/22 Time Not Available CONCLUSIONS Mild non obstructive CAD, Preserved EF, No significant . RECOMMENDATIONS DESCRIPTION OF PROCEDURE The patient arrived to the procedure lab. The risks and benefits of the procedure as well as a full d escription of our services here and current unavailability of surgical backup were fully explained to the patient and/or their significant other prior to the catheterization. The Timeout was completed, verifying the correct patient and procedure. The patient's procedural site was prepped and draped in the usual fashion. Local anesthetic was given subcutaneously to right radial region with Lidocaine 2% . Using a modified Seldinger technique, arterial access was obtained via the right radial artery, a 6 Fr sheath was inserted. Left Coronary Artery selective angiography was performed in multiple views u sing a 5 Fr. JL3.5 catheter. Left Ventriculography was performed in CARVAJAL projection using a 5 Fr. JR 4 CATH. LV to AO pullback pressures were then recorded. Right Coronary Artery selective angiography wa s then performed in multiple views using a 5 Fr. JR 4 catheter.The arterial sheath was pulled and a TR Band was applied for hemostasis CORONARY ANGIOGRAPHY DOMINANCE: Right Dominant LEFT HEART ASSESSMENT Left Ventricular Ejection Fraction: by LV Gram 70 % Normal LV wall motion LEFT MAIN: Angiographically normal LEFT ANTERIOR DESCENDING ARTERY: Mild luminal irregularities CIRCUMFLEX ARTERY: Mild luminal irregularities RIGHT CORONARY ARTERY: Mild luminal irregularities VALVE FINDINGS: No Aortic Valve Stenosis Mitral regurgitation could not be assessed due to PVCs COMPLICATIONS No Complications PROCEDURE MEDICATIONS Fentanyl 50 mcg IV Versed 1 mg IV Fentanyl 50 mcg IV Oxygen: 2 L/min via nasal cannula IV Bolus: .9 NaCl 500 ml total 02/12/2022 13:07:56 SUMMARY OF HEMODYNAMIC DATA Time AIR REST ECG 12:29:58 AO 89/70 (81) SA 12:53:21 AO 92/73 (82) 12:53:34 LV 87/13, 17 12:57:43 LV 84/8, 14 12:57:51 LV 112/1, 8 12:58:30 LVp 106/-3, 9 12:58:42 AOp 90/62 (77) 12:58:47 Signed By Kvein Doyle MD On 02/12/2022 16:26:19 Kevin Doyle MD
--- NOTE | 2022-02-12 16:28 | NURSING ---
Reviewed charting with Ede Razo RN
== END 2022-02-12 14:56 | disposition home or self-care (01) ==
LOC: ED 18:59 → PCU 22:34
PROVIDERS: Admitting Provider Internal Medicine; Emergency Provider Emergency Medicine; Visit Provider Internal Medicine
DX: R07.89 Other chest pain (principal); G43.709 Chronic migraine without aura, not intractable, without status migrainosus; F17.210 Nicotine dependence, cigarettes, uncomplicated; E87.6 Hypokalemia; I95.9 Hypotension, unspecified; R55 Syncope and collapse; R06.02 Shortness of breath; M54.2 Cervicalgia
CPT/HCPCS: C1769; C1894; Q9957; 36415; 71045; 80048; 80061; 83735; 84484; 85025; 85610; 85730; 93005; 93306; 93458; 96365; 96366; 96375; 99152; 99153; 99285; 99406; J7030; Q9967; J2405

== ENCOUNTER 2023-01-10 10:11 | Emergency (ER) | payer MEDICAID, SELFPAY ==
[2023-01-10 10:12] VITALS: BP 154/113; PULSE 100; RESP 18; TEMP 36.1; O2SAT 97; BMI 31.1
--- NOTE | 2023-01-10 10:32 | EX.ED.VIS.PS ---
HPI HPI - Psych History of Present Illness Chief Complaint: Mental Health Narrative Narrative: 42-year-old female past medical history of substance abuse, has been clean from marijuana and methamphetamines for 2 days presents with increasing depression, wanting her medication adjustment. She states that she has an old prescription from the counseling center and has been taking Wellbutrin, and she tried to take Seroquel but it made her too sleepy for day. She was also prescribed trazodone and another substance. She presents with an blender conveyor operator with whom she is supposed to check in with every few weeks because she feels like she needs hospitalization for medication adjustment. She denies any suicidal ideation, but has been checking in, texting things like I give up but then tells the blender conveyor operator that she does not feel suicidal. She denies hallucinations. She states she cannot be seen by the counseling center for weeks. PFSH PFSH Medical History History of substance abuse Shingles Smoker Home Medications amoxicillin 875 mg-potassium clavulanate 125 mg tablet 875 mg PO BID #9 tabs 02/12/22 [Rx Last Taken Unknown] aspirin 81 mg tablet,delayed release 81 mg PO BREAKFAST #30 tabs 02/12/22 [Rx Last Taken Unknown] atorvastatin 40 mg tablet 40 mg PO QHS #30 tabs 02/12/22 [Rx Last Taken Unknown] Allergy/AdvReac Type Severity Reaction Status Date / Time risperidone Allergy Anaphylaxis Verified 01/10/23 10:14 Family History Other CAD (coronary artery disease) Surgical History H/O tubal ligation History of left heart catheterization (02/12/22) Social History Smoking Status: Current every day smoker tobacco type: cigarettes ROS ROS ED ROS Narrative Constitutional: No fever, no chills. HEENT: No sore throat. No neck pain. No loss of vision. No rhinorrhea. Cardiovascular: No chest pain. No palpitations. No pedal edema. Respiratory: No cough, no shortness of breath. Abdominal: No abdominal pain. No nausea. No vomiting. Genitourinary: No dysuria. No hematuria. Musculoskeletal: No myalgias. No arthralgias. Neurologic: No headaches. No dizziness. No lightheadedness. Skin: No rash. No change in color. Psychiatric: Positive depression. No anxiety. Denies suicidal ideation or hallucinations. EXAM Physical Exam Narrative Exam Narrative: Afebrile. Vital signs noted. HEENT: Normocephalic. Atraumatic. PERRL, EOMI. Neck soft and supple. No point tenderness or step off. Cardiovascular: Regular rate and rhythm. No murmurs, rubs, or gallops appreciated. Respiratory: No tachypnea. Lungs clear to auscultation bilaterally. Gastrointestinal: Abdomen soft, nontender, with normoactive bowel sounds. No rebound or guarding. Neurological: Awake. Alert. Nonfocal, nonlateralizing. Skin: No rash. Normal color. No pallor. Musculoskeletal: No pedal edema. Full range of motion extremities. Const Vital Signs: 01/10/23 10:12 Temperature 97 F L Temperature Source Temporal Pulse Rate 100 Respiratory Rate 18 Blood Pressure 154/113 H Blood Pressure Mean 126 Pulse Ox 97 Oxygen Delivery Method Room Air MDM MDM MDM Narrative Medical decision making narrative: Medical clearance labs will be obtained. Patient was discussed with case management/social work. I reviewed the patient's laboratory work/medical screening laboratory work and she has a normal white count of 8.0, hemoglobin slightly low at 11.3 which I think is nonspecific, hematocrit 36.7. Platelet count normal at 377. Potassium slightly low at 3.1, with BUN normal at 14 and creatinine 0.89. Her glucose is appropriately elevated at 131 but her anion gap low at 3. Ethyl alcohol is negative at less than 3.0. Her urine for drugs of abuse is positive for cannabinoids, amphetamines, and MDMA. I was able to discuss the patient with social work, who has discussed the patient with the counseling center. She has not been seen there for quite some time, and there are no open appointments scheduled for her for follow-up. Case management did do the appropriate evaluation. It was not felt that she required emergent psychiatric admission at a psychiatric facility. She will [facility]-up with [facility] on Monday, she has a scheduled appointment. She is unable to perform intensive outpatient rehab currently as she has only been sober for 2 days. She will follow-up with [facility] for outpatient rehab. It was felt that she could be discharged safely home to follow-up. Return instructions to the emergency department were reviewed. Disposition is discharged home in stable condition. History & Record Review Discussion w/independent historian: Patient Additional record(s) reviewed:: Prior ED visit Lab Data Attestation: I reviewed the patient's lab results. Labs: Laboratory Results - last 24 hr 01/10/23 01/10/23 01/10/23 10:40 10:40 10:40 WBC 8.0 RBC 4.27 Hgb 11.3 L Hct 36.7 L MCV 85.9 MCH 26.5 L MCHC 30.8 L RDW Std Deviation 55.8 H RDW Coeff of Elizabeth 18.0 H Plt Count 377 MPV 9.1 Immature Gran % (Auto) 0.400 Neut % (Auto) 53.7 Lymph % (Auto) 29.4 [place] % (Auto) 8.1 Eos % (Auto) 7.5 H Baso % (Auto) 0.9 Absolute Neuts (auto) 4.3 Absolute Lymphs (auto) 2.35 Nucleated RBC % 0 Sodium 142 Potassium 3.1 L Chloride 113 H Carbon Dioxide 26.0 Anion Gap 3 L BUN 14 Creatinine 0.89 Estim Creat Clear Calc 64.46 Est GFR (MDRD) Af Amer 88 Est GFR (MDRD) Non-Af 73 BUN/Creatinine Ratio 15.7 Glucose 131 H Calcium 8.9 Serum , Qual Urine Opiates Screen Urine Methadone Screen Ur Barbiturates Screen Ur Phencyclidine Scrn Ur Amphetamines Screen MDMA (Ecstasy) Screen U Benzodiazepines Scrn Urine Cocaine Screen U Cannabinoids Screen Ur Drug Screen Comment Ethyl Alcohol < 3.0 01/10/23 01/10/23 10:40 10:46 WBC RBC Hgb Hct MCV MCH MCHC RDW Std Deviation RDW Coeff of Elizabeth Plt Count MPV Immature Gran % (Auto) Neut % (Auto) Lymph % (Auto) [place] % (Auto) Eos % (Auto) Baso % (Auto) Absolute Neuts (auto) Absolute Lymphs (auto) Nucleated RBC % Sodium Potassium Chloride Carbon Dioxide Anion Gap BUN Creatinine Estim Creat Clear Calc Est GFR (MDRD) Af Amer Est GFR (MDRD) Non-Af BUN/Creatinine Ratio Glucose Calcium Serum , Qual NEGATIVE Urine Opiates Screen NEGATIVE Urine Methadone Screen NEGATIVE Ur Barbiturates Screen NEGATIVE Ur Phencyclidine Scrn NEGATIVE Ur Amphetamines Screen POSITIVE H MDMA (Ecstasy) Screen POSITIVE H U Benzodiazepines Scrn NEGATIVE Urine Cocaine Screen NEGATIVE U Cannabinoids Screen POSITIVE H Ur Drug Screen Comment Ethyl Alcohol Discharge Plan Triage Chief Complaint: Mental Health ED Provider: Tj Guerra Dx/Rx/DC Orders Clinical Impression: Polysubstance abuse, Depression Instructions: Substance Abuse Rehab Program, ED Depression, ED Drug Abuse Prescriptions: No Action aspirin 81 mg Tablet,Delayed Release (Dr/Ec) 81 mg PO BREAKFAST Qty: 30 2RF amoxicillin-pot clavulanate 875-125 mg Tablet 875 mg PO BID Qty: 9 0RF atorvastatin 40 mg tablet 40 mg PO QHS Qty: 30 2RF Primary Care Provider: Care Physician,No Primary Referrals: [facility] [Non-Staff] - 01/16/23 Care Physician,No Primary [Primary Care Provider] - Activity Restrictions/Additional Instructions: [facility] on Monday as scheduled. Follow-up with [facility] as needed for polysubstance abuse and addiction. Disposition Disposition: Home, Self Care
[2023-01-10 10:48] LABS: Absolute Lymphocyte Count 2.35 X10^3/uL (0.83-4.51); Absolute Neutrophil Count 4.3 X10^3/uL (2.0-7.7); Basophil# 0.07 X10^3/uL; Basophil% 0.9 % (0-1); Eosinophils% 7.5 % (0-5); Hematocrit 36.7 % (37-47); Hemoglobin 11.3 g/dL (12.0-15.0); Lymphocyte # 2.35 X10^3/ul (0.83-4.51); Lymphocyte % 29.4 % (19-41); Mean Corp Hgb Conc 30.8 g/dL (32-36); Mean Corpuscular Hgb 26.5 pg (27.0-32.0); Mean Corpuscular Volume 85.9 fL (81-99); Mean Platelet Vol. 9.1 fl (6.2-12.0); Monocyte# 0.65 X10^3/uL; Monocyte% 8.1 % (0-10); NRBC Flagged by Analyzer 0 % (0-5); Neutrophil # 4.29 X10^3/uL (2.7-7.7); Neutrophil % 53.7 % (47-70); Platelet Count 377 K/mm3 (150-450); RBC Distribution Width SD 55.8 fl (35.1-43.9); Red Blood Count 4.27 M/mm3 (4.2-5.4)
[2023-01-10 11:01] LABS: Anion Gap 3 (5-15); BUN 14 mg/dL (7-18); BUN/Creat Ratio 15.7 RATIO (10-20); Calcium,Total 8.9 mg/dL (8.5-10.1); Chloride 113 mmol/L (98-107); Creatinine, Serum 0.89 mg/dL (0.55-1.02); EST Glomerular Filtration Rate 73 mL/min (>60); Est Glom Filt Rate - Afr Amer 88 mL/min (>60); Estimated Creatinine Clearance 64.46 ml/min; Glucose 131 mg/dL (74-106); Potassium 3.1 mmol/L (3.5-5.1); Sodium Level 142 mmol/L (136-145)
[2023-01-10 11:05] LABS: Amphetamine Urine VISTA POSITIVE (<1000 ng/mL); Barbiturate Urine VISTA NEGATIVE (< 200 ng/mL); Benzodiazepine Urine VISTA NEGATIVE (< 200 ng/mL); Cocaine Urine VISTA NEGATIVE (< 300 ng/mL); Ecstacy Urine VISTA POSITIVE (< 500 ng/mL); Methadone Urine VISTA NEGATIVE (< 300 ng/mL); PCP Urine VISTA NEGATIVE (< 25 ng/mL); THC Urine VISTA POSITIVE (< 50 ng/mL); Vista UDS pH Range 6
[2023-01-10 11:13] LABS: Internal QC Validated? YES +Cl - CLEAR BKGD; Pregnancy, Serum, hCG Quali. NEGATIVE Negative
[2023-01-10 11:20] LABS: Alcohol, Blood (Medical)-Serum < 3.0 mg/dL
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
== END 2023-01-10 12:39 | disposition home or self-care (01) ==
PROVIDERS: Emergency Provider Emergency Medicine; Visit Provider Emergency Medicine
DX: F19.10 Other psychoactive substance abuse, uncomplicated (principal); F32.A Depression, unspecified; F17.210 Nicotine dependence, cigarettes, uncomplicated; Z79.82 Long term (current) use of aspirin; Z79.899 Other long term (current) drug therapy
CPT/HCPCS: 36415; 80048; 80307; 82077; 84703; 85025; 87811; 99282

== ENCOUNTER 2023-02-17 15:46 | Emergency (ER) | payer MEDICAID, SELFPAY ==
[2023-02-17 15:48] VITALS: BP 158/102; PULSE 98; RESP 18; TEMP 35.7; O2SAT 97; BMI 30.3
--- NOTE | 2023-02-17 18:37 | ED.RN ---
pt was called approx 1 hour ago- not in triage. returned after going to save a lot per patient. reg undid LWBS
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
[2023-02-17] MEDS: Triamcinolone Acetonide 40 MG/ML Vial IM (20:04)
[2023-02-17] MEDS: Acetaminophen 325 MG Tablet 650 MG PO (20:04)
== END 2023-02-17 20:40 | disposition home or self-care (01) ==
LOC: ED 20:15
PROVIDERS: Emergency Provider Emergency Medicine; Visit Provider Emergency Medicine
DX: G44.309 Post-traumatic headache, unspecified, not intractable (principal); F17.210 Nicotine dependence, cigarettes, uncomplicated; L23.7 Allergic contact dermatitis due to plants, except food
CPT/HCPCS: 96372; 99283

== ENCOUNTER → 2023-09-26 | Outpatient (CLI) | payer MEDICAID, SELFPAY ==
--- OUTSIDE RECORDS SUMMARY | 2023-09-26 13:26 | XMS RPT_ITS | CCD ---
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 she is having increased vaginal discharge. No treatment or medications. BP 142/94 Pulse 95 Temp 36.6 ?C (97.8 ?F) Resp 21 Wt 72.7 kg (160 lb 3.2 oz) SpO2 98% Social History Tobacco Use Smoking status: Never Smokeless tobacco: Never No past medical history on file. I have confirmed and edited as necessary, the [facility] Review of Systems Constitutional: Negative for chills and fever. Gastrointestinal: Negative for abdominal pain. Genitourinary: Negative for dysuria, flank pain, frequency, hematuria and urgency. Vaginal discharge Objective Physical Exam Vitals and nursing note reviewed. Exam conducted with a radar systems engineer present. Constitutional: Appearance: Normal appearance. Pulmonary: Effort: Pulmonary effort is normal. Abdominal: General: Bowel sounds are normal. There is no abdominal bruit. Palpations: Abdomen is not rigid. There is no mass or pulsatile mass. Tenderness: There is no abdominal tenderness. There is no guarding or rebound. Negative signs include Arguelles's sign and McBurney's sign. Genitourinary: General: Normal vulva. Labia: Right: No rash or lesion. Left: No rash or lesion. Vagina: Vaginal discharge present. Cervix: Discharge present. No erythema. Comments: SHWETA Fang - present for exam. Skin: General: Skin is warm and dry. Neurological: Mental Status: She is alert and oriented to person, place, and time. Psychiatric: Mood and Affect: Affect normal. ASSESSMENT/PLAN: 1. Acute vaginitis - ICD9: 616.10, ICD10: N76.0 (primary diagnosis) Will check labs, and call with results and treatment needed based on testing. - BACTERIAL VAGINOSIS AMPLIFICATION - MILLIE / TRICHOMONAS AMPLIFICATION - GC/CHLAMYDIA DNA DET 2. Exposure to STD - ICD9: V01.6, ICD10: Z20.2 Will check labs, and call with results and treatment needed based on testing. Safe sex - HIV 1 2 COMBO(AG/AB),WITH REFLEX TO DIFFERENTIATION - SYPHILIS TOTAL W/REFLEX - HEP REMOTE PANEL BL - BACTERIAL VAGINOSIS AMPLIFICATION - MILLIE / TRICHOMONAS AMPLIFICATION - GC/CHLAMYDIA DNA DET Diagnosis and treatment plan were discussed and questions were answered to the patient's satisfaction. Pt acknowledged understanding of concepts and follow up plan. Specific signs and symptoms that would indicate the need for higher level of care were discussed in detail warranting prompt ER evaluation. Anne Thomas APRN.LANCE [facility] History of Present illness Narrative 08-17-2022 Anne Thomas APRN.LANCE - 08/17/2022 2:30 PM EST Note Date & Type Note Facility 08-17-2022 History of Presen t illness Narrative Subjective The history is provided by the patient. No language assistant was used. HPI Emmie Lambert is a 42 year old female who presents today for CC of std testing due to possible exposure to std's - syphyllis and gonorrhea. Patient states she denies any ulcerations or sores or lesions, she is having increased vaginal discharge. No treatment or medications. BP 142/94 Pulse 95 Temp 36.6 C (97.8 F) Resp 21 Wt 72.7 kg (160 lb 3.2 oz) SpO2 98% Social History Tobacco Use Smoking status: Never Smokeless tobacco: Never No past medical history on file. I have confirmed and edited as necessary, the [facility] Review of Systems Constitutional: Negative for chills and fever. Gastrointestinal: Negative for abdominal pain. Genitourinary: Negative for dysuria, flank pain, frequency, hematuria and urgency. Vaginal discharge Objective Physical Exam Vitals and nursing note reviewed. Exam conducted with a radar systems engineer present. Constitutional: Appearance: Normal appearance. Pulmonary: Effort: Pulmonary effort is normal. Abdominal: General: Bowel sounds are normal. There is no abdominal bruit. Palpations: Abdomen is not rigid. There is no mass or pulsatile mass. Tenderness: There is no abdominal tenderness. There is no guarding or rebound. Negative signs include Arguelles's sign and McBurney's sign. Genitourinary: General: Normal vulva. Labia: Right: No rash or lesion. Left: No rash or lesion. Vagina: Vaginal discharge present. Cervix: Discharge present. No erythema. Comments: SHWETA Fang - present for exam. Skin: General: Skin is warm and dry. Neurological: Mental Status: She is alert and oriented to person, place, and time. Psychiatric: Mood and Affect: Affect normal. ASSESSMENT/PLAN: 1. Acute vaginitis - ICD9: 616.10, ICD10: N76.0 (primary diagnosis) Will check labs, and call with results and treatment needed based on testing. - BACTERIAL VAGINOSIS AMPLIFICATION - MILLIE / TRICHOMONAS AMPLIFICATION - GC/CHLAMYDIA DNA DET 2. Exposure to STD - ICD9: V01.6, ICD10: Z20.2 Will check labs, and call with results and treatment needed based on testing. Safe sex - HIV 1 2 COMBO(AG/AB),WITH REFLEX TO DIFFERENTIATION - SYPHILIS TOTAL W/REFLEX - HEP REMOTE PANEL BL - BACTERIAL VAGINOSIS AMPLIFICATION - MILLIE / TRICHOMONAS AMPLIFICATION - GC/CHLAMYDIA DNA DET Diagnosis and treatment plan were discussed and questions were answered to the patient's satisfaction. Pt acknowledged understanding of concepts and follow up plan. Specific signs and symptoms that would indicate the need for higher level of care were discussed in detail warranting prompt ER evaluation. Anne Thomas APRN.LANCE documented in this encounter [facility] Evaluation note Note Date & Type Note Facility documented in this encounter [facility] Evaluation note Note Date & Type Note Facility documented in this encounter [facility] Evaluation note Note Date & Type Note Facility documented in this encounter [facility] Summary Purpose Family History No Family History Records FoundNo Family History Records FoundNo Family History Records FoundNo Family History Records Found Advance Directives Latest Code Status on File Code Status Date Activated Date Inactivated Comments Full Code 07/09/2019 11:35 PM Full Code 05/10/2018 3:20 PM 05/14/2018 4:56 PM Full Code 05/10/2018 12:55 AM 05/10/2018 2:48 PM Full Code 01/17/2018 2:21 PM 01/25/2018 4:19 PM Full Code 01/15/2018 9:06 PM 01/17/2018 11:58 AM Latest Code Status on File Code Status Date Activated Date Inactivated Comments Full Code 07/09/2019 11:35 PM 07/12/2019 6:50 PM Full Code 05/10/2018 3:20 PM 05/14/2018 4:56 PM Full Code 05/10/2018 12:55 AM 05/10/2018 2:48 PM Full Code 01/17/2018 2:21 PM 01/25/2018 4:19 PM Full Code 01/15/2018 9:06 PM 01/17/2018 11:58 AM Discharge Instructions * Instructions* Federico Nguyen, - 10/31/2019 Soft diet, water and hydrogen peroxide mixed together with swishes 2-3 times a day and spit. Take the antibiotics until they are gone. Return to the emergency department as needed. * Attachments The following attachments cannot be sent through Care Everywhere. * Tooth: Abscessed (Swedish) documented in this encounter Assessments Diagnosis Dental abscess- Primary Periapical abscess without sinus Additional Source Comments INFORMATION SOURCE (unrecogn ized section and content) DATE CREATED AUTHOR AUTHOR'S ORGANIZ ATION 07/10/2019 [employer] DATE CREATED AUTHOR AUTHOR'S ORGANIZ ATION 11/13/2019 [employer] DATE CREATED AUTHOR AUTHOR'S ORGANIZ ATION 09/16/2022 [facility] Reason for Visit (unrecogniz ed section and content) Reason Comments STD X 2 to 3 days discha rge, possible syphilis Reason Comments Eye Problem Left eye cut x 1 day Source Comments (unrecognize d section and content) In the event this informatio n is protected by the Federal Confidentiality of Alcohol and Drug Abuse Patient Records regulations: The Federal rules restrict any use of the information to criminally investigate or prosecute any alcohol or drug abuse patient.[facility] the event this information is protected by the Federal Confidentiality of Alcohol and Drug Abuse Patient Records regulations: The Federal rules restrict any use of the information to criminally investigate or prosecute any alcohol or drug abuse patient.[facility] the event this information is protected by the Federal Confidentiality of Alcohol and Drug Abuse Patient Records regulations: The Federal rules restrict any use of the information to criminally investigate or prosecute any alcohol or drug abuse patient.[facility] FOR RECORDS PERTAINING TO PATIENTS WHO ARE OR HAVE BEEN ENROLLED IN A CHEMICAL DEPENDENCY/SUBSTANCEABUSE PROGRAM, SOME INFORMATION MAY BE OMITTED. This clinical summary was aggregated from multiple sources. Caution should be exercised in using it in the provision of clinical care. This summary normalizes information from multiple sources, and as a consequence, information in this document may materially change the coding, format and clinical context of patient data. In addition, data may be omitted in some cases. CLINICAL DECISIONS SHOULD BE BASED ON THE PRIMARY CLINICAL RECORDS. [facility] provides no warranty or guarantee of the accuracy or completeness of information in this document.
--- OUTSIDE RECORDS SUMMARY | 2023-10-06 15:44 | XMS RPT_ITS | CCD ---
Author Name Unknown Address [address] [place] [address] Organization [facility] Care Team Providers Care Social Media Intern Name Role Phone June Olivo Unavailable Unavailable [...] (2 sources) hydrOXYzine Drug Allergy 07-10-2019 Itching [place], [place] (2 sources) Risperidone And Related Propensity to adverse reactions to drug 09-10-2017 Swelling [place], [place] (4 sources) Albuterol; Translations: [RESPIROL] Drug Allergy 08-17-2022 Anaphylaxis [facility] Medications Current Medications Medication Drug Class(es) [...] Start: 10-31-2019 End: 10-31-2019 lidocaine-EPINEPHr ine 1 percent-[id number] injection 20 mL FLUoxetine 20 mg oral [...] 15:27-0500 Body temperature 98.2 [degF] Janie Romano APRN.[employer] Work Phone: [facility] 09-10-2022 15:27-0500 Body weight 72.58 kg Janie Romano APRN.LANCE Work Phone: [facility] 09-10-2022 15:27-0500 Diastolic blood pressure 82 mm[Hg] Janie Romano HAND COOPER HELPER.[employer] Work Phone: [facility] 09-10-2022 15:27-0500 Heart rate 113 /min Janie Romano HAND COOPER HELPER.[employer] Work Phone: [facility] 09-10-2022 15:27-0500 Respiratory rate 18 /min Janie Romano HAND COOPER HELPER.[employer] Work Phone: [facility] 09-10-2022 15:27-0500 SaO2% (BldA) [Mass fraction] 96 % Janie Romano HAND COOPER HELPER.[employer] Work Phone: [facility] 09-10-2022 15:27-0500 Systolic blood pressure 138 mm[Hg] Janie Romano HAND COOPER HELPER.[employer] Work Phone: [facility] 08-17-2022 13:41-0500 Body temperature 97.81 [degF] Anne Martha HAND COOPER HELPER.[employer] Work Phone: [facility] 08-17-2022 13:41-0500 Body weight 72.67 kg Anne Martha HAND COOPER HELPER.[employer] Work Phone: [facility] 08-17-2022 13:41-0500 Diastolic blood pressure 94 mm[Hg] Anne Martha HAND COOPER HELPER.[employer] Work Phone: [facility] 08-17-2022 13:41-0500 Heart rate 95 /min Anne Martha HAND COOPER HELPER.[employer] Work Phone: [facility] 08-17-2022 13:41-0500 Respiratory rate 21 /min Anne Martha HAND COOPER HELPER.[employer] Work Phone: [facility] 08-17-2022 13:41-0500 SaO2% (BldA) [Mass fraction] 98 % Anne Martha HAND COOPER HELPER.[employer] Work Phone: [facility] 08-17-2022 13:41-0500 Systolic blood pressure 142 mm[Hg] Anne Martha HAND COOPER HELPER.[employer] Work Phone: [facility] 10-31-2019 10:28-0500 BP Diastolic 106 mm[Hg] Federico Nguyen [employer] Work Phone: 10-31-2019 10:28-0500 BP Systolic 141 mm[Hg] Federico Nguyen [employer] Work Phone: 10-31-2019 10:28-0500 Pulse (Heart Rate) 106 /min Federico Nguyen [employer] Work Phone: 10-31-2019 10:28-0500 Pulse Oximetry 97 % Federico Nguyen [employer] Work Phone: 10-31-2019 07:43-0500 BMI (Body Mass Index) 32.5 kg/m2 Federico Nguyen [employer] Work Phone: 10-31-2019 07:43-0500 Body Temperature 98.71 [degF] Federico Nguyen [employer] Work Phone: 10-31-2019 07:43-0500 Body weight 78.02 kg Federico Nguyen [employer] Work Phone: 10-31-2019 07:43-0500 Respiratory Rate 16 /min Federicoperico Nguyen [employer] Work Phone: 07-11-2019 15:08-0400 Body Temperature 96.4 [degF] Osmin Kumar [employer] 07-11-2019 15:08-0400 BP Diastolic 94 mm[Hg] Osmin Kumar [employer] 07-11-2019 15:08-0400 BP Systolic 143 mm[Hg] Osmin Kumar [employer] 07-11-2019 15:08-0400 Pulse (Heart Rate) 83 /min Osmin Gamboa [facility] h- [employer] 07-11-2019 15:08-0400 Pulse Oximetry 97 % Osmin Kumar [employer] 07-11-2019 15:08-0400 Respiratory Rate 18 /min Osmin Kumar [employer] 07-09-2019 23:47-0400 BMI (Body Mass Index) 30.61 kg/m2 Osmin Gamboa [place]- [place], [place] 07-09-2019 23:47-0400 Body weight 73.48 kg Osmin Kumar [employer] [place] 07-09-2019 23:47-0400 Height 154.9 cm Osmin Kumar [place] Encounters Encounter Date Encounter Type Care Provider Facility Start: 02-17-2023 End: 02-17-2023 Patient encounter procedure Saida Ramos APRN.PECAN GROWER Work Phone: [facility] Procedures Date Procedure Procedure Detail Performing Clinician Start: 10-31-2019 INCISION AND DRAINAGE E mary Nguyen Work Phone: Start: 07-10-2019 Hemoglobin glycosylated a1c Rashel Kline Work Phone: Start: 07-10-2019 Lipid panel Rashle Kline Work Phone: Start: 07-09-2019 Ecg routine [...] Start: 07-09-2019 Creatine kinase total C harsimona Ritesh Work Phone: Start: 07-09-2019 Drug screen class list a Nolan Awad Work Phone: Start: 07-09-2019 Urine test visual color cmprsn meths Nolan Ritesh Work Phone: Start: 07-09-2019 Urnls dip stick/tabl et rgnt auto w/o microscopy Nolan Awad Work Phone: Plan of Treatment Date Care Activity Detail Author Start: 05-26-2023 Influenza vaccination INFLUENZA (Season Ended) [facility] Start: 09-25-2022 DEPRESSION ASSESSMENT DEPRESSION ASSESSMENT [facility] Start: 08-17-2022 End: 10-17-2022 BACTERIAL VAGINOSIS AMPLIFICATION BACTERIAL VAGINOSIS AMPLIFICATION Lab Routine Acute vaginitis Exposure to STD Expected: 08/17/2022, Expires: 10/17/2022 [facility] Work Phone: Payers Date Payer Category Payer Medicaid [id number] 2019 Medicaid [id number] 2017 Private Health Insurance xxx xxxxxx [id number] 1979 Unknown [id number] 1979 Unknown [id number] 1979 Unknown [id number] Private Health Insurance Social History Date Type Detail Facility Start: 07-09-2019 End: 10-31-2019 Tobacco smoking status NHIS Current every day smoker [place] History of tobacco use Cigarette Smoker M [place], [place] Start: 07-09-2019 End: 10-31-2019 Cigarettes smoked current (pack per day) - Reported [place] Start: 07-09-2019 [facility] [place] [place] Start: 1980 Sex Assigned At Not on file [place], [place] Start: 10-31-2019 Alcohol intake Current non-dr 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 documented in this encounter [facility] Progress note 09-10-2022 Note Date & Type Note Facility 09-10-2022 Note HNO ID: [id number] Author: Janie Romano APRN.LANCE Service: ? Author Type: Nurse Practitioner Type: Progress Notes Filed: 09/10/2022 3:37 PM Note Text: This note was created using Vitaldentriter. Subjective Emmie Lambert is a 42 year [...] history is provided by the patient. No esthetician/spa coordinator was used. Eye Problem This is a [...] leg: No festus (more content not included)... [facility] History of Present illness Narrative 09-10-2022 Janie Romano APRN.[facility] - 09/10/2022 3:32 PM EST Note Date & Type Note Facility 09-10-2022 History of Presen t illness Narrative Images from the original note were not included. This note was created using Grasshoppers!ter. Subjective Emmie Lambert is a 42 year [...] history is provided by the patient. No esthetician/spa coordinator was used. Eye Problem This is a [...] KEflex Follow up with PCP Janie Romano APRN.[employer] documented in this encounter [facility] Progress note 08-17-2022 Note Date & Type Note Facility 08-17-2022 Note HNO ID: [id number] Author: Anne Thomas APRN.LANCE Service: ? Author Type: Nurse Practitioner Type: Progress Notes Filed: 08/17/2022 2:35 PM Note Text: Subjective The history is provided by the patient. No esthetician/spa coordinator was used. HPI Emmie Lambert is a [...] have confirmed and edited as necessary, the [facility] Review of Systems Constitutional: Negative for chills and fever. Gastrointestinal: Negative for abdominal pain. Genitourinary: Negative for dysuria, flank pain, frequency, hematuria and urgency. Vaginal discharge Objective Physical Exam Vitals and nursing note reviewed. Exam conducted with a mammography supervisor present. Constitutional: Appearance: Normal appearance. Pulmonary: Effort: [...] warranting prompt ER evaluation. Anne Thomas APRN.LANCE [facility] History of Present illness Narrative 08-17-2022 Anne Thomas APRN.LANCE - 08/17/2022 2:30 PM EST Note Date & Type Note Facility 08-17-2022 History of Presen t illness Narrative Subjective The history is provided by the patient. No esthetician/spa coordinator was used. HPI Emmie Lambert is a [...] have confirmed and edited as necessary, the [facility] Review of Systems Constitutional: Negative for chills and fever. Gastrointestinal: Negative for abdominal pain. Genitourinary: Negative for dysuria, flank pain, frequency, hematuria and urgency. Vaginal discharge Objective Physical Exam Vitals and nursing note reviewed. Exam conducted with a mammography supervisor present. Constitutional: Appearance: Normal appearance. Pulmonary: Effort: [...] Anne Thomas APRN.LANCE documented in this encounter [facility] Evaluation note Note Date & Type Note Facility documented in this encounter [facility] Evaluation note Note Date & Type Note Facility documented in this encounter [facility] Evaluation note Note Date & Type Note Facility documented in this encounter [facility] Summary Purpose Family History No Family [...] sent through Care Everywhere. * Tooth: Abscessed (German) documented in this encounter Assessments Diagnosis Dental abscess- Primary Periapical abscess without sinus Additional Source Comments INFORMATION SOURCE (unrecogn ized section and content) DATE CREATED AUTHOR AUTHOR'S ORGANIZ ATION 07/10/2019 [employer] DATE CREATED AUTHOR AUTHOR'S ORGANIZ ATION 11/13/2019 [employer] DATE CREATED AUTHOR AUTHOR'S ORGANIZ ATION 09/16/2022 [facility] Reason for Visit (unrecogniz ed section [...] or prosecute any alcohol or drug abuse patient.[facility] the event this information is protected by the Federal Confidentiality of Alcohol and Drug Abuse Patient Records regulations: The Federal rules restrict any use of the information to criminally investigate or prosecute any alcohol or drug abuse patient.[facility] the event this information is protected by the Federal Confidentiality of Alcohol and Drug Abuse Patient Records regulations: The Federal rules restrict any use of the information to criminally investigate or prosecute any alcohol or drug abuse patient.[facility] FOR RECORDS PERTAINING TO PATIENTS WHO [...] BE BASED ON THE PRIMARY CLINICAL RECORDS. [facility] provides no warranty or guarantee of the accuracy or completeness of information in this document.
== END | disposition home or self-care (01) ==
PROVIDERS: PCP Family Medicine; Referring Provider Family Medicine; Visit Provider Family Medicine
DX: R01.1 Cardiac murmur, unspecified (principal)
CPT/HCPCS: 93306

== ENCOUNTER 2024-11-16 11:51 | Emergency (ER) | payer MEDICAID, SELFPAY ==
[2024-11-16] VITALS (9 sets, daily range): BP systolic 84–151; BP diastolic 44–95; PULSE 78–92; RESP 14–17; TEMP 36.3–36.6; O2SAT 88–100; BMI 31.1
--- NOTE | 2024-11-16 12:04 | EKG12_ITS ---
Test Reason : SOB Blood Pressure : */* mmHG Vent. Rate : 85 BPM Atrial Rate : 85 BPM P-R Int : 136 ms QRS Dur : 92 ms QT Int : 442 ms P-R-T Axes : 71 64 41 degrees QTcB Int : 525 ms Normal sinus rhythm Nonspecific ST abnormality Prolonged QT Abnormal ECG Confirmed by Karthik Snyder ([id number]), associate entertainment editor VELVET VIRGEN ([id number]) on 11/18/2024 10:16:50 AM Referred By: Kiko Kay Confirmed By: Karthik Snyder
--- NOTE | 2024-11-16 12:08 | EDS_ITS ---
HPI <GEORGE Yap - Last Filed: 11/16/24 15:25> History of Present Illness Chief Complaint: Shortness of Breath Narrative Narrative: 44-year-old female with no known past medical history, tobacco use presents with 5 days of cough and congestion and about 20 minutes prior to arrival states she felt lightheaded, short of breath, and had bilateral shoulder and chest discomfort with taking a deep breath. She was nauseated without vomiting. She has eaten less than usual this week but states she had a cup of juice and pizza this morning. She was found to be hypoxic here and does not wear home oxygen. PFSH <GEORGE Yap - Last Filed: 11/16/24 15:25> [facility], [facility] Medical History History of substance abuse Shingles Smoker Home Medications ?Medication ?Instructions ?Recorded ?Last Taken ?Type aspirin 81 mg tablet,delayed 81 mg PO BREAKFAST #30 ta bs 02/12/22 Unknown Rx release atorvastatin 40 mg tablet 40 mg PO QHS #30 tabs Unknown Rx psoecmu-[id number] 250 1 tab PO Q6H PRN pa in 11/16/24 Unknown History mg-250 mg-65 mg tablet (Excedrin Extra Strength) potassium chloride 20 mEq 20 meq PO BID 5 days #10 tab s 11/16/24 Unknown Rx tablet,extended release Allergy/AdvReac Type Severity Reaction Status Date / Time risperidone Allergy Anaphylaxis Verified 11/16/24 11:59 Family History Other CAD (coronary artery disease) Surgical History H/O tubal ligation History of left heart catheterization (02/12/22) Social History Smoking Status: Current every day smoker tobacco type: cigarettes ROS <GEORGE Yap - Last Filed: 11/16/24 15:25> ROS ED ROS Narrative Constitutional: Negative for fever, chills. Respiratory: Positive for shortness of breath, cough. GI: Positive for nausea. Negative for abdominal pain, vomiting, diarrhea. Neuro: Negative for headache. EXAM <GEORGE Yap - Last Filed: 11/16/24 15:25> Physical Exam Narrative Exam Narrative: CONST: Patient appears ill in mild respiratory distress on nasal cannula 6 L. EYES: Normal inspection. NECK: Normal inspection. RESP: Slight left lower lobe crackles, otherwise clear. CVS: Regular rate and rhythm, no murmur, no gallop. ABD: Soft and nontender, no guarding or rebound, nondistended. SKIN: Color normal, no rash, warm, dry, intact. EXTREMITIES: Normal appearance, no pedal edema. NEURO: Alert and answering questions appropriately. PSYCH: Normal affect. Const Vital Signs: 11/16/24 11:54 11/16/24 11:54 11/16/24 11:59 Temperature 97.4 F L 97.4 F L Temperature Source Oral Temporal Pulse Rate 92 82 Respiratory Rate 14 17 Respiratory Effort Respiratory Depth Respiratory Pattern Blood Pressure 98/44 L 84/55 L Blood Pressure Mean 62 64 Pulse Ox 90 99 Oxygen Delivery Method Nasal Cannula Nasal Cannula Nasal Cannula Oxygen Flow Rate (L/min) 6 6 2 11/16/24 12:21 11/16/24 12:22 11/16/24 13:28 Temperature 97.8 F Temperature Source Oral Pulse Rate 79 Respiratory Rate 16 Respiratory Effort Short of Breath Labored Respiratory Depth Shallow Respiratory Pattern Normal Blood Pressure 151/95 H Blood Pressure Mean 113 Pulse Ox 97 100 Oxygen Delivery Method Nasal Cannula Nasal Cannula Room Air Oxygen Flow Rate (L/min) 2 2 11/16/24 13:32 11/16/24 14:35 11/16/24 14:37 Temperature 97.9 F Temperature Source Pulse Rate 78 Respiratory Rate 16 Respiratory Effort Respiratory Depth Respiratory Pattern Blood Pressure 140/93 H Blood Pressure Mean 108 Pulse Ox 99 99 99 Oxygen Delivery Method Room Air Oxygen Flow Rate (L/min) <Dr. Kiko Kay MD - Last Filed: 11/16/24 14:23> Physical Exam Const Vital Signs: 11/16/24 11:54 11/16/24 11:54 11/16/24 11:59 Temperature 97.4 F L 97.4 F L Temperature Source Oral Temporal Pulse Rate 92 82 Respiratory Rate 14 17 Respiratory Effort Respiratory Depth Respiratory Pattern Blood Pressure 98/44 L 84/55 L Blood Pressure Mean 62 64 Pulse Ox 90 99 Oxygen Delivery Method Nasal Cannula Nasal Cannula Nasal Cannula Oxygen Flow Rate (L/min) 6 6 2 11/16/24 12:21 11/16/24 12:22 11/16/24 13:28 Temperature 97.8 F Temperature Source Oral Pulse Rate 79 Respiratory Rate 16 Respiratory Effort Short of Breath Labored Respiratory Depth Shallow Respiratory Pattern Normal Blood Pressure 151/95 H Blood Pressure Mean 113 Pulse Ox 97 100 Oxygen Delivery Method Nasal Cannula Nasal Cannula Room Air Oxygen Flow Rate (L/min) 2 2 11/16/24 13:32 11/16/24 14:35 11/16/24 14:37 Temperature 97.9 F Temperature Source Pulse Rate 78 Respiratory Rate 16 Respiratory Effort Respiratory Depth Respiratory Pattern Blood Pressure 140/93 H Blood Pressure Mean 108 Pulse Ox 99 99 99 Oxygen Delivery Method Room Air Oxygen Flow Rate (L/min) [facility] <GEORGE Yap - Last Filed: 11/16/24 15:25> [facility] Narrative Medical decision making narrative: Differential includes but not limited to viral illness, pneumonia, cardiogenic shock, ACS, PE 44-year-old female with 5 days of cough and congestion presents with acute presyncope symptoms and shortness of breath. She appears ill but nontoxic. She was 80% on room air for EMS and arrived on 6 L nasal cannula. She was also hypotensive with BP of 98/44, HR 92, and afebrile at 97.4F. She had mild crackles in the left lung base with an otherwise unremarkable exam. Labs show normal white count of 8.1 with elevated lymphocytes. Chemistry shows hypokalemia at 2.9, glucose 197 with normal CO2 and anion gap. EKG is sinus rhythm without ischemia and troponin is 6. D-dimer negative. BNP less than 2. Procalcitonin is also negative. Her CXR and viral swab for COVID/flu/RSV are negative. I suspect she has a viral upper respiratory illness based on her norm al white count and elevated lymphs. After IV fluid bolus of 2 L she is normotensive and has been gradually weaned back to room air and it was 100%. She was reevaluated and is feeling much better and speaking in full sentences in no distress. Her ambulatory pulse ox is 98%. Based on this I think discharge is appropriate. She was given p.o. potassium here and a prescription for potassium at home with symptomatic care instructions for URI. She should return for any worsening symptoms. She was agreeable with this plan and discharged in stable condition. Lab Data Attestation: I reviewed the patient's lab results. Labs: Laboratory Results - last 24 hr 11/16/24 11/16/24 12:15 12:20 WBC 8.1 RBC 4.69 Hgb 13.3 Hct 40.4 MCV 86.1 MCH 28.4 MCHC 32.9 RDW Std Deviation 51.5 H RDW Coeff of Elizabeth 16.3 H Plt Count 511 H MPV 9.7 Immature Gran % (Auto) 0.500 Neut % (Auto) 33.2 L Lymph % (Auto) 60.6 H Mineral % (Auto) 3.2 Eos % (Auto) 2.3 Baso % (Auto) 0.2 Absolute Neuts (auto) 2.7 Absolute Lymphs (auto) 4.93 H Nucleated RBC % 0 D-Dimer Quant (PE/DVT) < 0.27 L Sodium 143 Potassium 2.9 L Chloride 110 H Carbon Dioxide 23.0 Anion Gap 10 BUN 18 Creatinine 0.88 Estim Creat Clear Calc 77.77 Est GFR (MDRD) Af Amer 89 Est GFR (MDRD) Non-Af 73 BUN/Creatinine Ratio 20.3 H Glucose 197 H Calcium 9.8 Troponin I High Sens 6 B-Natriuretic Peptide < 2.0 Procalcitonin 0.06 Radiography Diagnostic Testing: Clinical Impression(s) from Imaging Studies Chest X-Ray 11/16/24 12:25 IMPRESSION: No radiographic evidence of acute cardiopulmonary disease Reading Location: [facility], [facility]1983 attending interpretation of 1-view chest x-ray shows normal heart size, no acute infiltrate, edema, or effusion. EKG Initial EKG: Attestation: I personally reviewed and interpreted this EKG as follows: Interpretation: Sinus Rhythm and No Acute Injury Pattern Comments: Normal sinus rhythm at [address] changes, prolonged QTc at 525 ms No STEMI <Dr. Kiko Kay MD - Last Filed: 11/16/24 14:23> [facility] Lab Data Labs: Laboratory Results - last 24 hr 11/16/24 11/16/24 12:15 12:20 WBC 8.1 RBC 4.69 Hgb 13.3 Hct 40.4 MCV 86.1 MCH 28.4 MCHC 32.9 RDW Std Deviation 51.5 H RDW Coeff of Elizabeth 16.3 H Plt Count 511 H MPV 9.7 Immature Gran % (Auto) 0.500 Neut % (Auto) 33.2 L Lymph % (Auto) 60.6 H Mineral % (Auto) 3.2 Eos % (Auto) 2.3 Baso % (Auto) 0.2 Absolute Neuts (auto) 2.7 Absolute Lymphs (auto) 4.93 H Nucleated RBC % 0 D-Dimer Quant (PE/DVT) < 0.27 L Sodium 143 Potassium 2.9 L Chloride 110 H Carbon Dioxide 23.0 Anion Gap 10 BUN 18 Creatinine 0.88 Estim Creat Clear Calc 77.77 Est GFR (MDRD) Af Amer 89 Est GFR (MDRD) Non-Af 73 BUN/Creatinine Ratio 20.3 H Glucose 197 H Calcium 9.8 Troponin I High Sens 6 B-Natriuretic Peptide < 2.0 Procalcitonin 0.06 Radiography Diagnostic Testing: Clinical Impression(s) from Imaging Studies Chest X-Ray 11/16/24 12:25 IMPRESSION: No radiographic evidence of acute cardiopulmonary disease Reading Location: [facility] Treatment and Re-Evaluation Comments:: I have personally performed a face to face assessment of the patient and have reviewed the DANNA Note. I performed a substantive portion of the visit including all aspects of the following. My mckeon findings include: History is felt like she had a cold for the past 4 days, today feeling worse, dyspnea with exertion, chest discomfort diffuse which is better now, lightheaded and near syncopal with light exertion today. No travel out of the area recently or the country. Exam is appears ill and malaised but able to converse and in no respiratory distress. Breath sounds are somewhat distant, but light crackles in the left lung. Trachea midline. Heart regular, no pedal edema, generally weak but nonfocal neurologic exam abdomen benign. Medical Decison Making pressure is low and patient is hypoxic on room air in triage. Septic workup. 1 view chest x-ray normal on my interpretation, radiology in agreement. The rest of her workup is unremarkable, and her hypoxemia resolved, off of oxygen she is 99% on room air and with ambulation she is feeling well and without any hypoxemia. Her workup is normal and her relative hypotension resolved even before the first liter of fluid was finished. Perhaps dehydrated. Lack of leukocytosis as well as what is more like a right shift all consistent with viral etiology. Negative for COVID/influenza/RSV. Supportive care advised and can follow-up or return if worse since she is not orthostatic or symptomatic with standing/walking. Other additions or changes: [None] Discharge Plan Triage Chief Complaint: Shortness of Breath ED Midlevel Provider: Melba Muro ED Provider: Kiko Kay Dx/Rx/DC Orders Clinical Impression: Viral URI, Acute dehydration, Acute hypokalemia, Transient hypotension Instructions: Dehydration, ED URI, Viral, No Abx (Adult) Prescriptions: New potassium chloride 20 mEq tablet extended release 20 meq PO BID 5 Days Qty: 10 0RF No Action aspirin 81 mg Tablet,Delayed Release (Dr/Ec) 81 mg PO BREAKFAST Qty: 30 2RF atorvastatin 40 mg tablet 40 mg PO QHS Qty: 30 2RF Excedrin Extra Strength 250-250-65 mg tablet 1 tab PO Q6H PRN (Reason: pain) Primary Care Provider: Aleena Palomino Referrals: Aleena Palomino DO [Primary Care Provider] - Agustín Gordon MD [Med Staff - Active Staff] - Activity Restrictions/Additional Instructions: I suspect you have a respiratory virus. You need to drink plenty of fluids to avoid dehydration. Take Tylenol or Motrin as needed for pain. You can use pnrm-ait-wewploa decongestants or cough medications as needed. If your symptoms worsen or you develop difficulty breathing please come back to the emergency room. Print Language: [place] Disposition Disposition: Home, Self Care Discharge Date/Time: 11/16/24 14:37
[2024-11-16] MEDS: 0.9% Normal Saline (1000mL) 1,000 ML 999 ML IV ×2 (12:12→13:27)
[2024-11-16 12:21] LABS: Absolute Lymphocyte Count 4.93 X10^3/uL (0.83-4.51); Absolute Neutrophil Count 2.7 X10^3/uL (2.0-7.7); Basophil# 0.02 X10^3/uL; Basophil% 0.2 % (0-1); Eosinophil# 0.19 X10^3/uL; Eosinophils% 2.3 % (0-5); Hematocrit 40.4 % (37-47); Hemoglobin 13.3 g/dL (12.0-15.0); Lymphocyte # 4.93 X10^3/ul (0.83-4.51); Lymphocyte % 60.6 % (19-41); Mean Corp Hgb Conc 32.9 g/dL (32-36); Mean Corpuscular Hgb 28.4 pg (27.0-32.0); Mean Corpuscular Volume 86.1 fL (81-99); Mean Platelet Vol. 9.7 fl (6.2-12.0); Monocyte# 0.26 X10^3/uL; Monocyte% 3.2 % (0-10); NRBC Flagged by Analyzer 0 % (0-5); Neutrophil % 33.2 % (47-70); Platelet Count 511 K/mm3 (150-450); RBC Distribution Width CV 16.3 % (11.6-14.6); RBC Distribution Width SD 51.5 fl (35.1-43.9); Red Blood Count 4.69 M/mm3 (4.2-5.4); White Blood Count 8.1 K/mm3 (4.4-11.0)
--- NOTE | 2024-11-16 12:25 | RAD_ITS ---
PROCEDURE: CHEST 1 VIEW (PORTABLE) REASON FOR EXAM: Dyspnea TECHNIQUE: Frontal and lateral views of the chest. COMPARISON: 02/11/22 FINDINGS: The heart size is normal. The mediastinal contour is unremarkable. The lungs are clear. The bones are unremarkable. RAD/Chest 1 View (Portable) IMPRESSION: No radiographic evidence of acute cardiopulmonary disease Reading Location: [facility]
[2024-11-16 12:42] LABS: Anion Gap 10 (5-15); BUN 18 mg/dL (7-18); BUN/Creat Ratio 20.3 RATIO (10-20); Calcium,Total 9.8 mg/dL (8.5-10.1); Chloride 110 mmol/L (98-107); Creatinine, Serum 0.88 mg/dL (0.55-1.02); EST Glomerular Filtration Rate 73 mL/min (>60); Est Glom Filt Rate - Afr Amer 89 mL/min (>60); Estimated Creatinine Clearance 77.77 ml/min; Glucose 197 mg/dL (74-106); Potassium 2.9 mmol/L (3.5-5.1); Sodium Level 143 mmol/L (136-145); Troponin-I HS 6 pg/mL (3.0-54.0)
[2024-11-16 13:26] LABS: Procalcitonin 0.06 ng/mL (0.00-0.09)
[2024-11-16] MEDS: Potassium Chloride Oral Tablet 20 MEQ 40 MEQ PO (13:47)
[2024-11-16 13:49] LABS: D-Dimer Quantitative (DVT/PE) < 0.27 FEU/ug/m (0.27-0.49)
--- NOTE | 2024-11-16 13:59 | ED.RN ---
PT TESTED AND WALKED TO BATHROOM, PT STATES SHE FEELS MUCH BETTER
[2024-11-16 14:00] LABS: BNP,B-Type NATRIURETIC PEPTIDE < 2.0 pg/mL (0-100)
== END 2024-11-16 14:37 | disposition home or self-care (01) ==
PROVIDERS: Physician Assistant; Emergency Provider Emergency Medicine; PCP Family Medicine; Referring Provider Emergency Medicine; Visit Provider Emergency Medicine
DX: J06.9 Acute upper respiratory infection, unspecified (principal); E86.0 Dehydration; R03.1 Nonspecific low blood-pressure reading; R09.02 Hypoxemia; R55 Syncope and collapse; R11.0 Nausea; Z11.52 Encounter for screening for COVID-19; E87.6 Hypokalemia; F17.210 Nicotine dependence, cigarettes, uncomplicated; Z79.82 Long term (current) use of aspirin; Z79.899 Other long term (current) drug therapy
CPT/HCPCS: 36415; 71045; 80048; 83880; 84145; 84484; 85025; 85379; 87631; 93005; 96360; 96361; 99285; A4216

== ENCOUNTER 2025-03-18 19:13 | Emergency (ER) | payer MEDICAID, SELFPAY ==
[2025-03-18 19:15] VITALS: BP 130/102; PULSE 107; RESP 18; TEMP 36.1; O2SAT 99; BMI 30.4
--- NOTE | 2025-03-18 19:28 | RAD_ITS ---
PROCEDURE: TOE(S) MIN 2 VIEWS 03/18/2025 REASON FOR EXAM: PAIN SWELLING LEFT FOURTH TOE DUE TO BLUNT TRAUMA TECHNIQUE: TOE(S) MIN 2 VIEWS COMPARISON: None FINDINGS: No displaced fracture or traumatic malalignment. Joint spaces are maintained. Bone mineral density is subjectively normal. The soft tissues are unremarkable. RAD/Toe(s) Min 2 Views IMPRESSION: No displaced fracture of the left toes. Reading Location: [facility]
--- NOTE | 2025-03-18 19:28 | RAD_ITS ---
PROCEDURE: FOREARM 2 VIEWS 03/18/2025 REASON FOR EXAM: BRUISING NEAR RT ANTERIOR ELBOW AND POSTERIOR FOREARM TECHNIQUE: FOREARM 2 VIEWS COMPARISON: Frontal and lateral views of the right forearm FINDINGS: No displaced fracture or traumatic malalignment. Tiny spur at the coronoid process of the ulna. Bone mineral density is subjectively normal. Joint spaces are maintained. The soft tissues are unremarkable. RAD/Forearm 2 Views IMPRESSION: No displaced fracture of the right forearm. Consider dedicated elbow radiograp hs if there is persistent concern for elbow injury. Reading Location: [facility]
--- NOTE | 2025-03-18 19:29 | RAD_ITS ---
PROCEDURE: THORACIC SPINE 3 VIEWS 03/18/2025 REASON FOR EXAM: INJURY/PAIN TECHNIQUE: Frontal and lateral views of the thoracic spine COMPARISON: Same day chest radiograph FINDINGS: Thoracic vertebral body heights are maintained. There is extensive endplate osteophyte formation in the mid to lower thoracic spine. Visualized lung gong are clear. RAD/Thoracic Spine 3 Views IMPRESSION: 1. No radiographic evidence of vertebral compression deformity, consider CT if there is persistent concern. 2. Moderate degenerative changes in the mid to lower thoracic spine. Reading Location: [id number]
--- NOTE | 2025-03-18 19:29 | RAD_ITS ---
PROCEDURE: PELVIS 1 OR 2 VIEWS 03/18/2025 REASON FOR EXAM: INJURY/PAIN TECHNIQUE: PELVIS 1 OR 2 VIEWS COMPARISON: None FINDINGS: No displaced fracture. Joint spaces are maintained. Bone mineral density is subjectively normal. The soft tissues are unremarkable. Subtle calcification near the greater trochanter of the right proximal femur may represent sequela of calcific tendinopathy. RAD/Pelvis 1 or 2 Views IMPRESSION: No displaced pelvic fracture. Reading Location: [facility]
--- NOTE | 2025-03-18 19:40 | RAD_ITS ---
PROCEDURE: CHEST INSP/EXP 2 VIEW 03/18/2025 REASON FOR EXAM: DECREASED BREATH SOUNDS LEFT, BLUNT TRAUMA TECHNIQUE: Frontal views of the chest in inspiration and expiration. COMPARISON: Chest radiographs on 11/16/2024 FINDINGS: Hardware: None Heart: The heart size is normal. Lungs: No focal consolidation, pleural effusion, or pneumothorax. Bones: No displaced rib fracture. RAD/Chest Insp/Exp 2 View IMPRESSION: No acute cardiopulmonary abnormality. Reading Location: [facility]
[2025-03-18 20:39] LABS: Color, Urine Yellow (Yellow); Glucose, Dipstick Normal (Normal); Ketone-Dipstick 50 mg/dl (Negative); Leukocyte Esterase-Dipstick Negative /ul (Negative); Nitrite-Dipstick Negative (Negative); Occult Blood-Urine 25 /ul (Negative); Protein-Dipstick 30 mg/dl (Negative); Specific Gravity, Urine 1.025 (1.002-1.030); Urine Bilirubin Dipstick Negative (Negative); Urine Clarity Cloudy (Clear); Urine Urobilinogen Normal (Normal)
[2025-03-18 20:49] LABS: CPK Total, Creatine Kinase 327 U/L (24-195)
[2025-03-18] MEDS: HYDROcodone Bitartrate/Apap 5/325 Tablet PO (20:54)
[2025-03-18 21:11] LABS: Squamous Epithelial Cells - UA 25-50 SEEN /hpf (5-10)
[2025-03-18 21:12] LABS: Bacteria 3+ /hpf (None Seen); Mucous, Urine 2+ /hpf (<or=2+); Red Blood Cells-Urine 0-5 SEEN /hpf (0-5); Renal Epithelial Cells 0-5 SEEN /hpf (0-5); White Blood Cells 0-5 SEEN /hpf (0-5)
--- NOTE | 2025-03-18 21:37 | EX.ED.GENINJ ---
HPI History of Present Illness Chief Complaint: Fall Detail of Chief Complaint: Injury due to fall Informant: patient Onset/Context/Timing Onset: Yesterday Mechanism/Context: Fall Location of pain/injuries: Right forearm and - (Dorsal spine, left fourth toe, chest and pelvis) Current Severity: Mild Maximum Severity: Moderate Worsened by: Movement and palpation Relieved by: Nothing Associated Symptoms Associated Symptoms: Negative for Parasthesias, Weakness, Loss of function, Inability to ambulate, Loss of consciousness or Amnesia Narrative Narrative: Patient is a 44-year-old woman. She was moving furniture. She jumped on the sofa that was wedged and she fell over the railing and had a 4 foot fall to the floor. She landed on her back. She denies loss of conscious. She denies amnesia. She denies nausea vomiting. She denies change in vision. She has tinnitus. She has had no decrease in hearing. The tinnitus is chronic. She denies neck pain. She denies chest pain or shortness of breath. She denies abdominal pain. Her back pain is mid dorsal. She also complains of pain over the right iliac wing. She also has complaint of pain over the right forearm. She states her urine is dark. She is on no antithrombotic or anticoagulant. Prior similar symptoms: No Recent Illness/Hospitalization: No PFSH PFSH Medical History History of substance abuse Smoker Shingles Home Medications ?Medication ?Instructions ?Recorded ?Last Taken ?Type lebrgik-cnbjaafecgahf-nlxpeurp 250 1 tab PO Q6H PRN pain 11/16/24 Unknown History mg-250 mg-65 mg tablet (Excedrin Extra Strength) naproxen 500 mg tablet 500 mg PO BID #14 tabs 03/18/25 Unknown Rx Allergy/AdvReac Type Severity Reaction Status Date / Time risperidone Allergy Anaphylaxis Verified 03/18/25 19:15 Family History Other CAD (coronary artery disease) Surgical History History of left heart catheterization (02/12/22) H/O tubal ligation Social History household members: spouse housing: house Smoking Status: Current every day smoker tobacco type: cigarettes ROS ROS ED Constitutional Constitutional ED: Denies chills, fever(s) or subjective Eyes Eyes: Denies blurry vision or change in vision ENT ENT ED: Reports other Details: No dental trauma or epistaxis. ; Denies ear pain, rhinorrhea or sore throat Cardiovascular Cardiovascular: Denies chest pain or palpitations Respiratory/Chest Respiratory/Chest: Denies cough, dyspnea or dyspnea on exertion Gastrointestinal Gastrointestinal: Denies abdominal pain, nausea or vomiting Genitourinary Genitourinary ED: Reports hematuria; Denies dysuria or urinary frequency Musculoskeletal Musculoskeletal: Reports back pain; Denies arthralgias, myalgias or neck pain Integumentary Denies rash Neurologic Neurologic: Denies headache(s), paresthesias or weakness Psychiatric Psychiatric: Denies anxiety Endocrine Endocrinology: Denies cold intolerance or heat intolerance Hematologic/Lymphatic Hematologic/Lymphatic: Denies easy bleeding or easy bruising EXAM Physical Exam Const Vital Signs: 03/18/25 19:15 03/18/25 20:14 Temperature 97 F L Temperature Source Temporal Pulse Rate 107 H Respiratory Rate 18 Respiratory Effort Normal Non-Labored Respiratory Depth Normal Respiratory Pattern Normal Blood Pressure 130/102 H Blood Pressure Mean 111 Pulse Ox 99 Oxygen Delivery Method Room Air Room Air Positive well nourished and well developed Constitutional Narrative: BMI 30.4. Patient appears uncomfortable. General Appearance ED: well developed HEENT Reports TM's clear HEENT Narrative: Patient complains of pain on the occiput. There is no hematoma. There is no palpable pression. There is no clinical signs of basilar skull fracture. There is no septal deviation hematoma. There is no dental trauma. There is no facial trauma. Tympanic Membrane ED: Yes TM's clear Eyes PERRL and EOMs intact bilaterally General Eye ED: Yes other Other Details: There is no nystagmus. There is no subconjunctival hemorrhage. Chest Wall inspection of chest normal and palpation of chest normal Resp normal respiratory effort and No clear to auscultation bilaterally Resp Narrative: Decreased breath sounds on the left compared to the right. There is no crepitus or subcutaneous air. Cardio regular rhythm, S1 normal heart sound, S2 normal heart sound and no murmurs Cardio Narrative: No Romario's crunch. No distant heart tones. Rate: regular rate GI normal to inspection, nondistended, normoactive bowel sounds, non-tender, non-distended and no masses GI Narrative: There is no hepatosplenomegaly. Back/Spine normal to inspection; Negative for no thoracic nor lumbar tenderness Back/Spine Narrative: Pain to palpation dorsal spine [id number] region. There is pain palpation over the right iliac wing. Thoracic Spine / Upper Back: thoracic spinal tenderness T5, T6, T7 and T8 Extremity normal to inspection and full ROM Extremity Narrative: Pain to palpation right radius and ulna. There is no pain ovation of the lateral medial epicondyle, olecranon process or radial head. Is no pain ovation of the distal radius or ulna. Axillary, median, radial and ulnar function intact. Neuro oriented x3, CN's II-XII intact bilaterally, moves all extremities, no focal motor deficits, no sensory deficits noted and gait normal [place] Coma Scale: document GCS findings Spontaneous Obeys Commands Oriented 15 Sensorium / Orientation: alert Plantar Reflex: Downgoing: bilateral Psych mental status grossly normal and thought process normal Skin no rashes or lesions noted, skin turgor normal and no jaundice MDM MDM MDM Narrative Medical decision making narrative: Since patient had no loss of consciousness not amnestic no symptoms of concussion on no anticoagulant or antithrombotic per [place] CT head rule imaging of the head is not warranted. C-spine was cleared per [facility] criteria. Because of pain of the right forearm an x-ray was obtained to evaluate for contusion versus fracture. Because she has pain palpation of the pelvis x-ray was obtained to evaluate for contusion versus fracture. Because she has point tenderness dorsal spine x-ray was obtained to determine fracture versus contusion. Does have decreased breath sounds on the left chest x-ray with inspiratory expiratory films was obtained to evaluate for pneumothorax. Patient was medicated with oral hydrocodone acetaminophen for her pain. Because a complaint of dark-colored urine and CPK was obtained which is slightly elevated at 327. Urine was obtained as well looking for blood. Lab Data Lab results narrative: CPK is slightly elevated. UA is remarkable for spec gravity 1.025 and a contaminated specimen with 25-50 epithelial cells. Labs: Laboratory Results - last 24 hr 03/18/25 20:21 Total Creatine Kinase 327 H Urine Color Yellow Urine Clarity Cloudy Urine pH 5.0 Ur Specific Tropic 1.025 Urine Protein 30 H Urine Glucose (UA) Normal Urine Ketones 50 H Urine Occult Blood 25 H Urine Nitrite Negative Urine Bilirubin Negative Urine Urobilinogen Normal Ur Leukocyte Esterase Negative Urine RBC 0-5 SEEN Urine WBC 0-5 SEEN Ur Squamous Epith Cells 25-50 SEEN Ur Renal Epithelial Cell 0-5 SEEN Urine Bacteria 3+ Urine Mucus 2+ Radiography Chest X-Ray - ED: 1 View (Single view of the pelvis reveals no fracture of the pelvis or widening of the SI joint. The right and left femur appear normal.), 2 View (2 view chest x-ray reveals no evidence of pneumothorax, hemothorax or fractured ribs. This is independently reviewed interpreted by me.), Read by ED Physician (2 view x-ray of the dorsal spine reveals no evidence of fracture subluxation. There is degenerative changes noted.) and - (Three-view x-ray of the left fourth toe was a obtained and independent reviewed interpreted by me as negative for fracture or dislocation.) Diagnostic Testing: Clinical Impression(s) from Imaging Studies Forearm X-Ray 03/18/25 19:28 IMPRESSION: No displaced fracture of the right forearm. Consider dedicated elbow radiographs if there is persistent concern for elbow injury. Reading Location: [id number] Toe X-Ray 03/18/25 19:28 IMPRESSION: No displaced fracture of the left toes. Reading Location: [id number] Pelvis X-Ray 03/18/25 19:29 IMPRESSION: No displaced pelvic fracture. Reading Location: [facility] Thoracic Spine X-Ray 03/18/25 19:29 IMPRESSION: 1. No radiographic evidence of vertebral compression deformity, consider CT if there is persistent concern. 2. Moderate degenerative changes in the mid to lower thoracic spine. Reading Location: [facility] Chest X-Ray 03/18/25 19:40 IMPRESSION: No acute cardiopulmonary abnormality. Reading Location: [id number] Discharge Plan Triage Chief Complaint: Fall Other Complaint: Back ED Provider: Mike Hassan Dx/Rx/DC Orders Clinical Impression: CHI (closed head injury), Contusion of right forearm, initial encounter, Contusion of pelvis, Contusion of thoracic spine, Hx of substance abuse, Elevated blood-pressure reading without diagnosis of hypertension, Sinus tachycardia Instructions: ED Back Contusion, ED Contusion, Upper Extremity, ED Head Injury (Adult) Prescriptions: New naproxen 500 mg tablet 500 mg PO BID Qty: 14 0RF No Action Excedrin Extra Strength 250-250-65 mg tablet 1 tab PO Q6H PRN (Reason: pain) Primary Care Provider: Care Physician,No Primary Referrals: Care Physician,No Primary [Primary Care Provider] - Doctor,Your [Non-Staff] - 1 Week if not improving Activity Restrictions/Additional Instructions: 1. Apply ice 6-8 times per day areas of discomfort. 2. Expect to feel worse over the next 24 to 48 hours and hurt in more places than you presently do. Print Language: Slovenian Disposition Disposition: Home, Self Care
[2025-03-18 22:09] VITALS: BP 141/92; PULSE 96; RESP 18; TEMP 36.9; O2SAT 98
== END 2025-03-18 22:10 | disposition home or self-care (01) ==
PROVIDERS: Emergency Provider Emergency Medicine; Visit Provider Emergency Medicine
DX: S09.90XA Unspecified injury of head, initial encounter (principal); F19.11 Other psychoactive substance abuse, in remission; S30.0XXA Contusion of lower back and pelvis, initial encounter; S20.229A Contusion of unspecified back wall of thorax, initial encounter; S50.11XA Contusion of right forearm, initial encounter; W08.XXXA Fall from other furniture, initial encounter; R03.0 Elevated blood-pressure reading, without diagnosis of hypertension; R00.0 Tachycardia, unspecified; H93.19 Tinnitus, unspecified ear; M79.675 Pain in left toe(s); F17.210 Nicotine dependence, cigarettes, uncomplicated
CPT/HCPCS: 71046; 72072; 72170; 73090; 73660; 81001; 82550; 99284; A4216